=== PATIENT | female | born 1975 ===

== ENCOUNTER 2016-08-10 08:31 | Inpatient (IN) | payer OTHER ==
[2016-08-10] MEDS ORDERED: Iohexol 240 (50 ml) PO STA (09:09)
[2016-08-10] MEDS ORDERED: Iohexol 240 (50 ml) ONE (09:15)
[2016-08-10 09:16] LABS: BASO # 0.1 K/uL (0.0-0.2); BASO % 0.7 % (0.0-2.0); EOS # 0.2 K/uL (0.0-0.7); EOS % 1.2 % (0.0-4.0); HEMATOCRIT 37.7 % (34.0-47.0); LYMPH # 1.5 K/uL (1.0-4.3); LYMPH % 8.4 % (20.0-40.0); MEAN CELL VOLUME 83.4 fL (81.0-99.0); MEAN CORPUSCULAR HEMOGLOBIN 27.2 pg (27.0-31.0); MEAN CORPUSCULAR HGB CONC 32.7 g/dL (33.0-37.0); MONO % 5.6 % (0.0-10.0); PLATELET COUNT 344 K/uL (130-400); RED CELL DISTRIBUTION WIDTH 13.2 % (11.5-14.5); WHITE BLOOD COUNT 17.8 K/uL (4.8-10.8)
--- NOTE | 2016-08-10 09:19 | C.PDOC ---
History Of Present Illness 41 y/o female, whose PMHx includes thyroid disorder and ectopic (10 yrs ago), presents to the ED complaining of lower abdominal pain x 1 day. Patient describes the pain as "contraction-like" and states that it is waxing and waning, never quite going away. She states her last bowel movement was yesterday and denies nausea, vomiting, diarrhea, urinary symptoms, vaginal discharge, fever, back pain, or other complaints. Time Seen by Provider: 08/10/16 08:54 Chief Complaint (Nursing): Abdominal Pain History Per: Patient History/Exam Limitations: no limitations Onset/Duration Of Symptoms: Days (1), Waxing/Waning, Persistent Current Symptoms Are (Timing): Still Present Location Of Pain/Discomfort: RLQ, LLQ, Suprapubic Radiation Of Pain To:: None Quality Of Discomfort: Other ("contraction-like") Last Bowel Movement: Yesterday Recent travel outside of the [place]: No Past Medical History Reviewed: Historical Data, Nursing Documentation, Vital Signs Vital Signs: Last Vital Signs Temp 97.7 F 08/15/16 07:56 Pulse 71 08/15/16 08:53 Resp 20 08/15/16 07:56 BP 151/89 H 08/15/16 07:56 Pulse Ox 97 08/15/16 07:56 - Medical History PMH: Hypothyroidism Other Surgeries: abdominal surgery s/p ectopical preg Family History: States: Unknown Family Hx - Social History Hx Tobacco Use: No Hx Alcohol Use: No Hx Substance Use: No - Immunization History Hx Tetanus Toxoid Vaccination: No Hx Influenza Vaccination: No Hx Pneumococcal Vaccination: No Review Of Systems Except As Marked, All Systems Reviewed And Found Negative. Constitutional: Negative for: Fever Gastrointestinal: Positive for: Abdominal Pain (lower). Negative for: Nausea, Vomiting, Diarrhea Genitourinary: Negative for: Dysuria, Hematuria, Vaginal Discharge Musculoskeletal: Negative for: Back Pain Physical Exam - Physical Exam Appears: Non-toxic, No Acute Distress, Other (uncomfortable) Skin: Normal Color, Warm, Dry Head: Atraumatic, Normacephalic Oral Mucosa: Moist Neck: Normal ROM Chest: Symmetrical Cardiovascular: Rhythm Regular, Other (tachycardic) Respiratory: Normal Breath Sounds, No Rales, No Rhonchi, No Wheezing Gastrointestinal/Abdominal: Bowel Sounds (normal), Soft, Tenderness (RLQ, LLQ, and suprapubic), Guarding Back: Normal Inspection, No CVA Tenderness Extremity: Normal ROM, No Tenderness, No Swelling Pulses: Left Femoral: Normal (+2), Right Femoral: Normal (+2) Neurological/Psych: Oriented x3, Normal Speech, Normal Cognition ED Course And Treatment - Laboratory Results Result Diagrams: 08/15/16 07:15 08/15/16 07:15 O2 Sat by Pulse Oximetry: 98 (ra) Pulse Ox Interpretation: Normal - CT Scan/US CT Abd/Pelvis Other Rad Studies (CT/US): Read By Radiologist (Jorge Odonnell MD), Radiology Report Reviewed CT/US Interpretation: FINDINGS: LOWER THORAX: Mild dependent atelectasis in both lower lobes. LIVER: Unremarkable. No gross lesion or ductal dilatation. GALLBLADDER AND BILE DUCTS: Unremarkable. PANCREAS: Unremarkable. No gross lesion or ductal dilatation. SPLEEN: Unremarkable. ADRENALS: Unremarkable. No mass. KIDNEYS AND URETERS: Unremarkable. No hydronephrosis. No solid mass. VASCULATURE: Unremarkable. No aortic aneurysm. BOWEL: Unremarkable. No obstruction. No gross mural thickening. APPENDIX: Normal appendix. PERITONEUM : Trace fluid in cul-de-sac. LYMPH NODES: Shotty subcentimeter retroperitoneal nodes. Subcentimeter nodes are seen medial to the ascending colon. There are numerous subcentimeter lymph nodes within the small bowel mesenteric, consistent with mesenteric adenitis. There is no pelvic lymphadenopathy. BLADDER: Unremarkable. REPRODUCTIVE: Unremarkable uterus. Left ovarian cyst, 3.1 x 2.4 cm. BONES: No acute fracture. OTHER FINDINGS: None. IMPRESSION: Findings consistent with mesenteric adenitis. Left ovarian cyst, 3.1 x 2.4 cm. No other significant abnormality. Medical Decision Making Medical Decision Making: Plan: * Labs * UA, U-Preg * CT Abd/Pelvis * Morphine IVP, Tylenol PO, Zofran IVP, Rocephin IVPB, IV Fluids * * * * * 238 * discussed with Dr Fernandez, will admit to his service Disposition Discussed With : Carlos Pink Doctor Will See Patient In The: Hospital - Disposition Disposition: HOSPITALIZED Disposition Time: 14:41 Condition: GOOD - Clinical Impression Clinical Impression: Mesenteric adenitis, UTI (urinary tract infection), Abdominal pain - PA / ASSISTIVE TECHNOLOGY SPECIALIST / Resident Statement MD/DO has reviewed & agrees with the documentation as recorded. - Scribe Statement The provider has reviewed the documentation as recorded by the Scribe (Mary Ann Hall) All medical record entries made by the Scribe were at my direction and personally dictated by me. I have reviewed the chart and agree that the record accurately reflects my personal performance of the history, physical exam, medical decision making, and the department course for this patient. I have also personally directed, reviewed, and agree with the discharge instructions and disposition. Decision To Admit - Pt Status Changed To: Hospital Disposition Of: Inpatient - Admit Certification Admit to Inpatient:: After my assessment, the patient will require hospitalization for at least two midnights. This is because of the severity of symptoms shown, intensity of services needed, and/or the medical risk in this patient being treated as an outpatient. - InPatient: Physician Admission Certification:: for iv antibioitics and pain control - . Bed Request Type: Regular Admitting Physician: Carlos Pink Patient Diagnosis: Mesenteric adenitis, UTI (urinary tract infection), Abdominal pain
[2016-08-10 09:26] LABS: CHLORIDE 100 mmol/L (98-107)
[2016-08-10 09:27] LABS: POTASSIUM 3.9 mmol/L (3.6-5.2); SODIUM 136 mmol/L (132-148)
[2016-08-10] MEDS ORDERED: Sodium Chloride 0.9% 1,000 ML ONE (09:28)
[2016-08-10 09:29] LABS: ALB/GLOB RATIO 1.3 (1.0-2.1); ALKALINE PHOSPHATASE 94 U/L (38-126); AST/SGOT 21 U/L (14-36); BILIRUBIN,TOTAL 1.3 mg/dL (0.2-1.3); BLOOD UREA NITROGEN 9 mg/dL (7-17); CARBON DIOXIDE 22 mmol/L (22-30); GFR AFRICAN-AMERICAN > 60; TOTAL PROTEIN 7.9 g/dL (6.3-8.3)
[2016-08-10 09:30] LABS: ALT/SGPT 22 U/L (9-52); CALCIUM 8.6 mg/dl (8.6-10.4); GLUCOSE,RANDOM 101 mg/dL (65-105)
[2016-08-10] MEDS ORDERED: Sodium Chloride 0.9% 1,000 ML IV SCH (09:30)
[2016-08-10] MEDS ORDERED: Sodium Chloride 0.9% 1,000 ML IV ONE (09:30)
[2016-08-10 09:39] LABS: NEUTROPHIL 82 % (50-75); TOTAL CELLS COUNTED 100
[2016-08-10 09:56] LABS: RBC URINE 9 /hpf (0-3); URINE BACTERIA OCC (<OCC); URINE BILIRUBIN NEGATIVE (NEGATIVE); URINE BLOOD 2+ (NEGATIVE); URINE COLOR Yellow (YELLOW); URINE GLUCOSE (UA) NORMAL (Normal); URINE KETONE 1+ mg/dL (NEGATIVE); URINE LEUKOCYTE ESTERASE 2+ Leu/uL (Negative); URINE PROTEIN 1+ mg/dL (NEGATIVE); URINE UROBILINOGEN NORMAL mg/dL (0.2-1.0); WBC URINE 51 /hpf (0-5)
[2016-08-10] MEDS ORDERED: Morphine 4 MG/ML VIAL IV ONE (11:30)
[2016-08-10] MEDS ORDERED: cefTRIAXone IV 1 gm in Dextros 50 ML IVPB ONE (12:07)
[2016-08-10] MEDS ORDERED: Iohexol 350mg/ml 100 ML ONE (12:50)
--- NOTE | 2016-08-10 13:58 | CT ---
PROCEDURE: CT Abdomen and Pelvis with contrast HISTORY: diffuse lower ab pain COMPARISON: None. TECHNIQUE: Contrast dose: 100 mL Omnipaque 350 Radiation dose: Total exam DLP = 832.80 mGy-cm. This CT exam was performed using one or more of the following dose reduction techniques: Automated exposure control, adjustment of the mA and/or kV according to patient size, and/or use of iterative reconstruction technique. FINDINGS: LOWER THORAX: Mild dependent atelectasis in both lower lobes. LIVER: Unremarkable. No gross lesion or ductal dilatation. GALLBLADDER AND BILE DUCTS: Unremarkable. PANCREAS: Unremarkable. No gross lesion or ductal dilatation. SPLEEN: Unremarkable. ADRENALS: Unremarkable. No mass. KIDNEYS AND URETERS: Unremarkable. No hydronephrosis. No solid mass. VASCULATURE: Unremarkable. No aortic aneurysm. BOWEL: Unremarkable. No obstruction. No gross mural thickening. APPENDIX: Normal appendix. PERITONEUM: Trace fluid in cul-de-sac. LYMPH NODES: Shotty subcentimeter retroperitoneal nodes. Subcentimeter nodes are seen medial to the ascending colon. There are numerous subcentimeter lymph nodes within the small bowel mesenteric, consistent with mesenteric adenitis. There is no pelvic lymphadenopathy. BLADDER: Unremarkable. REPRODUCTIVE: Unremarkable uterus. Left ovarian cyst, 3.1 x 2.4 cm. BONES: No acute fracture. OTHER FINDINGS: None. IMPRESSION: Findings consistent with mesenteric adenitis. Left ovarian cyst, 3.1 x 2.4 cm. No other significant abnormality.
--- NOTE | 2016-08-10 15:03 | CP.PCM.HP ---
<Juventino rFias H - Last Filed: 08/10/16 16:35> History of Present Illness - History of Present Illness History of Present Illness: Dr. Russo service H&P CC: "abdomen hurts" Patient is a 41 year female with a past medical history of an ectopic , hypothyroidism, and miscarriage. She is here complaining of diffuse lower abdominal pain, sharp non radiating pain which is worsening from when it started. She says the pain started yesterday. She says the pain is made worse with body movement and also deep inspiration. She reports a loss of appetite, subjective fever and chills. She currently denies changes in vision, hearing, cough, admits to some shortness of breath today while in the bathroom. She complains of chronic constipation with her last bowel movement being yesterday and it was normal. She also reports having irregular, painful and heavy menstrual cycle as well. Her last LMP was Saturday of this week. She also reports some bilateral lower leg pain that she thinks is associated with her last menstrual cycle. She denies nausea, vomiting, diarrhea, joint pain, but admits occasional ankle swelling. Patient has taken no medication for the pain. Patient [place] her medication from her [place] country. PMH: Hypothyroidism, Ectopic PSH: Ectopic FH: Father DM and HTN, Father's mother colon cancer, Mother side of family hypothyroidism SH: Lives with friend, unemployed, social etoh use, denies smoking, illicit drug use Allergies: obnoxious smell Home Medication: 150mcg of synthroid every other day, 100 mcg of symthroid every other day from her country. PMD: none Present on Admission - Present on Admission Any Indicators Present on Admission: No History of DVT/PE: No History of Uncontrolled Diabetes: No Urinary Catheter: No Decubitus Ulcer Present: No Review of Systems - Review of Systems All systems: reviewed and no additional remarkable complaints except - Constitutional Constitutional: Chills, Fever, Headache. absent: Excessive Sweating - EENT Eyes: absent: Change in Vision Ears: Dizziness - Cardiovascular Cardiovascular: Dyspnea. absent: Chest Pain, Edema, Palpitations - Respiratory Respiratory: Dyspnea. absent: Cough, Wheezing - Gastrointestinal Gastrointestinal: Abdominal Pain (worsen with deep inspiration). absent: Constipation, Diarrhea, Nausea, Vomiting Additional comments: loss of appetite. - Genitourinary Genitourinary: absent: Dysuria, Flank Pain, Pyuria, Urinary Urgency - Reproductive: Female Reproductive:Female: Cycle Variable Additional comments: LMP was Monday 08/07 - Menstruation Menstruation: Heavy Menses. absent: Currently Menstual - Musculoskeletal Musculoskeletal: absent: Numbness, Tingling - Integumentary Integumentary: absent: Rash, Jaundice - Neurological Neurological: Dizziness. absent: Numbness, Headaches, Paresthesias, Radicular Pain - Psychiatric Psychiatric: absent: Anxiety - Endocrine Endocrine: absent: Fatigue, Palpitations Past Patient History - Past Social History Smoking Status: Never Smoked - ENDOCRINE/METABOLIC Hx Hypothyroidism: Yes - PSYCHIATRIC Hx Substance Use: No - SURGICAL HISTORY Hx Surgeries: Yes Other/Comment: abdominal surgery s/p ectopical preg. - ANESTHESIA Hx Anesthesia: Yes Hx Anesthesia Reactions: No Meds Allergies/Adverse Reactions: Allergies Allergy/AdvReac Type Severity Reaction Status Date / Time No Known Allergies Allergy Verified 08/10/16 08:39 Physical Exam - Constitutional Appears: Other Additional comments: Patient looked uncomfortable. - Head Exam Head Exam: ATRAUMATIC, NORMAL INSPECTION, NORMOCEPHALIC - Eye Exam Eye Exam: Normal appearance, PERRL, Scleral icterus. absent: Nystagmus Pupil Exam: NORMAL ACCOMODATION Additional comments: conjunctival pallor - Neck Exam Neck exam: Positive for: Normal Inspection. Negative for: Lymphadenopathy - Respiratory Exam Respiratory Exam: Clear to Auscultation Bilateral. absent: Decreased Breath Sounds, Rales, Rhonchi, Wheezes - Cardiovascular Exam Cardiovascular Exam: REGULAR RHYTHM, RRR, +S1, +S2. absent: Gallop, Rubs - GI/Abdominal Exam GI & Abdominal Exam: Guarding, Normal Bowel Sounds, Soft, Tenderness (very tender to palpation but no rebound tenderness). absent: Distended, Organomegaly , Rebound - Extremities Exam Extremities exam: Positive for: normal inspection. Negative for: pedal edema, tenderness - Back Exam Back exam: absent: CVA tenderness (L), CVA tenderness (R), paraspinal tenderness - Neurological Exam Neurological exam: Oriented x3 - Psychiatric Exam Psychiatric exam: Normal Affect, Normal Mood - Skin Skin Exam: Dry, Pallor, Warm Results - Vital Signs Recent Vital Signs: Last Vital Signs Temp 101.3 F H 08/10/16 13:46 Pulse 105 H 08/10/16 13:46 Resp 18 04/07/17 13:46 BP 154/78 H 08/10/16 13:46 Pulse Ox 98 08/10/16 14:43 - Labs Result Diagrams: 08/10/16 09:06 08/10/16 09:06 Assessment & Plan (1) UTI (urinary tract infection) Assessment and Plan: Patient admitted to regular floor Patient has a white count of 17.8 with left shift and bandemia. She is tachycardic and having a low grad fever. So it does fit sepsis, however patient 's f She has suprapubic pain, urine shows nitrates with LE, RBCs and WBCs. No prior history of UTI. Urine test was also negative. Rocephin 1 gram daily and Flagyl 500mg Q8H. Follow up blood and urine culture. Follow up cbc, cmp, mag, phos blood and urine cultures. Monitor patient for sepsis. Status: Acute (2) Mesenteric adenitis Assessment and Plan: CT scan in the ED showed adenitis Consider repeat CT scan or surgical consult if her symptoms persist. Status: Acute (3) Hypothyroidism Assessment and Plan: Continue her home synthroid medication. Follow up TSH and free T4 Status: Chronic (4) Prophylactic measure Assessment and Plan: Lovenox 40mg SC daily, SCDs Pepcid for GI Status: Acute <Neo Russo - Last Filed: 08/10/16 17:28> Results - Vital Signs Recent Vital Signs: Last Vital Signs Temp 98.8 F 08/10/16 15:44 Pulse 105 H 08/10/16 13:46 Resp 18 08/10/16 13:46 BP 154/78 H 08/10/16 13:46 Pulse Ox 98 08/10/16 14:43 - Labs Result Diagrams: 08/10/16 09:06 08/10/16 09:06 Assessment & Plan - Assessment and Plan (Free Text) Assessment: I saw and examined this patient shoulder to shoulder with Dr Frias. the assessment and plan outlined indicate my direct input. She is a 41 years old female with hx of Hyperthyroidism converted to Hypothyroidsm now on Levothyroxin , comes with 2 days of fever, dysuria and pain across the lower abdomen, LLQ and RLQ. The pain is continuous with changing intensity, not radiating to the flanks and no nausea/vomits. In ED temp of 101F; HR 114/min and bandemia with leukocytosis of 17.8 and Positive Urinalysis. #. UTI - Rocephin 1gm IVPB Daily - follow urine culture #. Sepsis with the Leukocytosis, bandemia, Fever, tachycardia - follow Blood culture - Follow urine culture - Treat UTI #. Mesenteric Adenitis. - Rocephin/ Flagyl to cover Anaerobes - Pain management - Zofran for Nausea/vomits #. Stress ulcer Prophylaxis with Pantoprazole #. DVT Prophylaxis - Date & Time Date: 08/10/16 Time: 17:19
[2016-08-10] MEDS ORDERED: Morphine 4 MG/ML VIAL IV PRN (17:23)
[2016-08-10] MEDS ORDERED: Pantoprazole 40 mg EC Tab PO ONE (17:45)
[2016-08-10] MEDS: Pantoprazole 40 mg EC Tab PO SCH (17:53)
[2016-08-10] MEDS: metroNIDAZOLE IV 500 mg/100 ml 100 ML IVPB SCH (21:20)
[2016-08-10 23:22] VITALS: RESP 20
[2016-08-11] MEDS: metroNIDAZOLE IV 500 mg/100 ml 100 ML IVPB SCH ×3 (05:33→21:49)
[2016-08-11] MEDS ORDERED: Levothyroxine 50 MCG TAB PO SCH (06:30)
[2016-08-11] MEDS ORDERED: Levothyroxine 100 MCG TAB PO SCH (06:30)
[2016-08-11 07:35] LABS: BASO # 0.1 K/uL (0.0-0.2); BASO % 0.5 % (0.0-2.0); EOS # 0.3 K/uL (0.0-0.7); EOS % 2.3 % (0.0-4.0); HEMATOCRIT 34.8 % (34.0-47.0); LYMPH % 19.5 % (20.0-40.0); MEAN CELL VOLUME 83.8 fL (81.0-99.0); MEAN CORPUSCULAR HEMOGLOBIN 27.3 pg (27.0-31.0); MEAN CORPUSCULAR HGB CONC 32.6 g/dL (33.0-37.0); MEAN PLATELET VOLUME 8.2 fL (7.2-11.7); MONO # 1.1 K/uL (0.0-0.8); MONO % 6.9 % (0.0-10.0); RED CELL DISTRIBUTION WIDTH 13.5 % (11.5-14.5); WHITE BLOOD COUNT 15.4 K/uL (4.8-10.8)
[2016-08-11 08:16] LABS: THYROID STIMULATING HORMONE 4.96 mIU/L (0.46-4.68)
[2016-08-11 08:24] LABS: CHLORIDE 100 mmol/L (98-107)
[2016-08-11 08:25] LABS: POTASSIUM 3.8 mmol/L (3.6-5.2); SODIUM 140 mmol/L (132-148)
[2016-08-11 08:27] LABS: ALB/GLOB RATIO 1.1 (1.0-2.1); ALKALINE PHOSPHATASE 91 U/L (38-126); AST/SGOT 17 U/L (14-36); BILIRUBIN,TOTAL 0.9 mg/dL (0.2-1.3); CARBON DIOXIDE 24 mmol/L (22-30); GFR AFRICAN-AMERICAN > 60; TOTAL PROTEIN 6.9 g/dL (6.3-8.3)
[2016-08-11 08:28] LABS: ALT/SGPT 20 U/L (9-52); BLOOD UREA NITROGEN 9 mg/dL (7-17); CALCIUM 8.2 mg/dl (8.6-10.4); GLUCOSE,RANDOM 75 mg/dL (65-105); MAGNESIUM 2.3 mg/dL (1.6-2.3); PHOSPHOROUS 2.9 mg/dL (2.5-4.5)
[2016-08-11] MEDS: Sodium Chloride 0.9% 1,000 ML IV SCH ×3 (09:04→20:40)
[2016-08-11] MEDS: Enoxaparin 40 mg Syringe SC SCH (10:00)
[2016-08-11] MEDS: Pantoprazole 40 mg EC Tab PO SCH (10:01)
[2016-08-11] MEDS: POLYETHYLENE GLYCOL 3350 17 GM/Dose PACKET PO SCH (11:30)
[2016-08-11] MEDS: Simethicone 80 mg Chewtab PO SCH (11:30)
--- NOTE | 2016-08-11 12:57 | CP.PCM.PN ---
<AdrianaKenia H - Last Filed: 08/11/16 12:54> Subjective - Date & Time of Evaluation Date of Evaluation: 08/12/15 Time of Evaluation: 08:30 - Subjective Subjective: PGY2 Medicine Note - Dr. Pink's service: Patient seen and examined at bedside this AM. Patient reports severe suprapubic and lower abdominal pain with movement. Patient has not had a bowel movement in 2 days. Patient reports difficulty urinating at home. Patient denies dysuria, urinary frequency and blood in her urine. Patient denies fever, chills , chest pain, SOB, nausea, vomiting today. Objective - Vital Signs/Intake and Output Vital Signs (last 24 hours): Temp Pulse Resp BP Pulse Ox 97.8 F 78 20 126/58 L 99 08/11/16 07:59 08/11/16 08:16 08/11/16 07:59 08/11/16 07:59 08/11/16 07:59 Intake and Output: 08/11/16 08/11/16 06:59 18:59 Intake Total 470 Balance 470 - Medications Medications: Current Medications Acetaminophen (Tylenol 325mg Tab) 650 mg PO Q6 PRN PRN Reason: Pain, severe (8-10) Dicyclomine HCl (Bentyl) 10 mg PO QID [facility] Enoxaparin Sodium (Lovenox) 40 mg SC DAILY [facility] Last Admin: 08/11/16 10:00 Dose: 40 mg Metronidazole (Flagyl) 100 mls @ 100 mls/hr IVPB Q8 [facility] Last Admin: 08/11/16 05:33 Dose: 100 mls/hr Ceftriaxone Sodium 1 gm/ (Sodium Chloride) 100 mls @ 100 mls/hr IVPB Q24H [facility]1983 Sodium Chloride (Sodium Chloride 0.9%) 1,000 mls @ 125 mls/hr IV .Q8H [facility] Last Admin: 08/11/16 09:04 Dose: 125 mls/hr Levothyroxine Sodium (Synthroid) 75 mcg PO DAILY@0630 [facility] Morphine Sulfate (Morphine) 4 mg IV Q6 PRN PRN Reason: Pain, severe (8-10) Morphine Sulfate (Morphine) 2 mg IVP Q6 PRN PRN Reason: Pain, moderate (4-7) Last Admin: 08/11/16 05:34 Dose: 2 mg Ondansetron HCl (Zofran Inj) 4 mg IVP Q4H PRN PRN Reason: Nausea/Vomiting Pantoprazole Sodium (Protonix Ec Tab) 40 mg PO DAILY [facility] Last Admin: 08/11/16 10:01 Dose: 40 mg Pneumococcal Polyvalent Vaccine (Pneumovax 23 Vaccine) 0.5 ml IM .ONCE ONE Stop: 08/12/16 10:01 Polyethylene Glycol (Miralax) 17 gm PO DAILY [facility] Simethicone (Mylicon Chew Tab) 80 mg PO DAILY RUFUS - Labs Labs: 08/11/16 07:18 08/11/16 07:18 - Constitutional Appears: Non-toxic, No Acute Distress - Head Exam Head Exam: NORMAL INSPECTION - Eye Exam Eye Exam: EOMI - ENT Exam ENT Exam: Mucous Membranes Moist - Respiratory Exam Respiratory Exam: Clear to Ausculation Bilateral, NORMAL BREATHING PATTERN. absent: Rales, Rhonchi, Wheezes - Cardiovascular Exam Cardiovascular Exam: REGULAR RHYTHM, +S1, +S2. absent: Gallop, Rubs, Murmur - GI/Abdominal Exam GI & Abdominal Exam: Distended (lower abdomen distended), Tenderness (severe pain with light palpation), Hyperactive Bowel Sounds - Extremities Exam Extremities Exam: absent: Pedal Edema - Neurological Exam Neurological Exam: Alert, Oriented x3 - Psychiatric Exam Psychiatric exam: Normal Affect, Normal Mood - Skin Skin Exam: Normal Color, Warm Assessment and Plan - Assessment and Plan (Free Text) Assessment: (1) UTI (urinary tract infection) Assessment and Plan: UA 1+ protein, 1+ ketones, 2+ blood, positive nitrate, 2+ LE, 51 WBC, 9 RBC, 11 squamous epithelial cells, occasional bacteria urine culture: positive for gram negative rods, F/U sensitivity WBC decreased to 15.4 from 17.8. No bandemia today. + left shift F/U blood culture F/U Lactic Acid Rocephin 1gm IVPB daily NS @125cc/hr (2) Mesenteric adenitis Seen and Abd/Pelvis CT scan Likely viral Surgical consult - Dr. Chairez - f/u recommendations distended abdomen Miralax 17gm PO daily Bentyl PO QID Simethicone 80mg PO daily Status: Acute (3) Hypothyroidism Assessment and Plan: TSH 4.96. Increased levothyroxine to 75mcg PO daily from 50mcg PO daily Patient will need to get TSH checked in 6 weeks outpatient Status: Chronic (4) Prophylactic measure Assessment and Plan: Lovenox 40mg SC daily, SCDs Protonix 40mg PO daily Status: Acute <Carlos Pink - Last Filed: 09/18/16 15:33> Objective - Vital Signs/Intake and Output Vital Signs (last 24 hours): Temp Pulse Resp BP Pulse Ox 97.7 F 71 20 151/89 H 98 08/15/16 07:56 08/15/16 08:53 08/15/16 07:56 08/15/16 07:56 08/17/16 03:20 - Labs Labs: 08/15/16 07:15 08/15/16 07:15 Attending/Attestation - Attestation I have personally seen and examined this patient.: Yes I have fully participated in the care of the patient.: Yes I have reviewed all pertinent clinical information, including history, physical exam and plan: Yes Notes (Text): Patient seen and examined with the resident. Agree with the resident's evaluation, assessment and plan. (1) UTI (urinary tract infection) Assessment and Plan: UA 1+ protein, 1+ ketones, 2+ blood, positive nitrate, 2+ LE, 51 WBC, 9 RBC, 11 squamous epithelial cells, occasional bacteria urine culture: positive for gram negative rods, F/U sensitivity WBC decreased to 15.4 from 17.8. No bandemia today. + left shift F/U blood culture F/U Lactic Acid Rocephin 1gm IVPB daily NS @125cc/hr (2) Mesenteric adenitis Seen and Abd/Pelvis CT scan Likely viral Surgical consult - Dr. Chairez - f/u recommendations distended abdomen Miralax 17gm PO daily Bentyl PO QID Simethicone 80mg PO daily Status: Acute
--- NOTE | 2016-08-11 14:33 | CP.PCM.CON ---
History of Present Illness - History of Present Illness History of Present Illness: General Surgery Dr. Chairez HPI: 41 y/o F w/ PMHx of hypothyroidism who pesented to the ED on 08/10/16 w/ CC of abd pain that began . Pain is described as sharp, non-radiating pain. Pain has progressively worsened which prompted pt to come in for evaluation. Pain is localized lower abd w/ RLQ>LLQ. Pain is made worse w/ mvt and deep breathing. Pt also reports anorexia, subjective fever, and chills. Pt denies N/V, Diarrhea but admits to some recent constipation. PMHx: hypothyroid, ectopic , miscarriage Meds reveiwed in chart NKDA PSHx: for ectopic SHx: denies tobacco or drug use; social EtOH = 1-2drinks ~ FHx: Father - colon Ca, Grandmother HTN, DM Review of Systems - Review of Systems All systems: reviewed and no additional remarkable complaints except (that which stated in HPI) Past Patient History - Past Medical History & Family History Past Medical History?: Yes - Past Social History Smoking Status: Never Smoked - ENDOCRINE/METABOLIC Hx Hypothyroidism: Yes - MUSCULOSKELETAL/RHEUMATOLOGICAL Hx Falls: No - PSYCHIATRIC Hx Substance Use: No - SURGICAL HISTORY Hx Surgeries: Yes Other/Comment: abdominal surgery s/p ectopical preg. - ANESTHESIA Hx Anesthesia: Yes Hx Anesthesia Reactions: No Hx Malignant Hyperthermia: No Has any member of the family had a problem w/ anesthesia?: No Meds Allergies/Adverse Reactions: Allergies Allergy/AdvReac Type Severity Reaction Status Date / Time No Known Allergies Allergy Verified 08/10/16 08:39 - Medications Medications: Current Medications Acetaminophen (Tylenol 325mg Tab) 650 mg PO Q6 PRN PRN Reason: Pain, severe (8-10) Dicyclomine HCl (Bentyl) 10 mg PO QID [facility] Enoxaparin Sodium (Lovenox) 40 mg SC DAILY [facility] Last Admin: 08/11/16 10:00 Dose: 40 mg Metronidazole (Flagyl) 100 mls @ 100 mls/hr IVPB Q8 [facility] Last Admin: 08/11/16 05:33 Dose: 100 mls/hr Ceftriaxone Sodium 1 gm/ (Sodium Chloride) 100 mls @ 100 mls/hr IVPB Q24H [facility] Sodium Chloride (Sodium Chloride 0.9%) 1,000 mls @ 125 mls/hr IV .Q8H [facility] Last Admin: 08/11/16 09:04 Dose: 125 mls/hr Levothyroxine Sodium (Synthroid) 75 mcg PO DAILY@0630 [facility] Morphine Sulfate (Morphine) 4 mg IV Q6 PRN PRN Reason: Pain, severe (8-10) Morphine Sulfate (Morphine) 2 mg IVP Q6 PRN PRN Reason: Pain, moderate (4-7) Last Admin: 08/11/16 05:34 Dose: 2 mg Ondansetron HCl (Zofran Inj) 4 mg IVP Q4H PRN PRN Reason: Nausea/Vomiting Pantoprazole Sodium (Protonix Ec Tab) 40 mg PO DAILY [facility] Last Admin: 08/11/16 10:01 Dose: 40 mg Pneumococcal Polyvalent Vaccine (Pneumovax 23 Vaccine) 0.5 ml IM .ONCE ONE Stop: 08/12/16 10:01 Polyethylene Glycol (Miralax) 17 gm PO DAILY [facility] Simethicone (Mylicon Chew Tab) 80 mg PO DAILY [facility] Physical Exam - Constitutional Appears: Non-toxic, No Acute Distress - Head Exam Head Exam: NORMAL INSPECTION - Eye Exam Eye Exam: Normal appearance - ENT Exam ENT Exam: Mucous Membranes Moist - Respiratory Exam Respiratory Exam: NORMAL BREATHING PATTERN. absent: Accessory Muscle Use, Respiratory Distress - Cardiovascular Exam Cardiovascular Exam: absent: Bradycardia, Tachycardia - GI/Abdominal Exam GI & Abdominal Exam: Guarding (voluntary), Soft, Tenderness (TTP RLQ). absent: Distended, Firm, Rebound, Rigid Additional comments: (-) Rosving, Psoas sign (-) McBurney's point TTP (+) obturator sign - Extremities Exam Extremities exam: Positive for: normal inspection. Negative for: pedal edema - Neurological Exam Neurological exam: Alert, Oriented x3 - Psychiatric Exam Psychiatric exam: Normal Affect, Normal Mood - Skin Skin Exam: Dry, Intact, Normal Color, Warm Results - Vital Signs Recent Vital Signs: Last Vital Signs Temp 97.8 F 08/11/16 07:59 Pulse 78 08/11/16 08:16 Resp 20 08/11/16 07:59 BP 126/58 L 08/11/16 07:59 Pulse Ox 99 08/11/16 07:59 - Labs Result Diagrams: 08/11/16 07:18 08/11/16 07:18 Labs: Laboratory Results - last 24 hr 08/11/16 07:18 WBC 15.4 H RBC 4.16 Hgb 11.3 Hct 34.8 MCV 83.8 MCH 27.3 MCHC 32.6 L RDW 13.5 Plt Count 336 MPV 8.2 Neut % (Auto) 70.8 Lymph % (Auto) 19.5 L Foster % (Auto) 6.9 Eos % (Auto) 2.3 Baso % (Auto) 0.5 Neut # 10.9 H Lymph # 3.0 Foster # 1.1 H Eos # 0.3 Baso # 0.1 Sodium 140 Potassium 3.8 Chloride 100 Carbon Dioxide 24 Anion Gap 19 BUN 9 Creatinine 0.6 L Est GFR ( Amer) > 60 Est GFR (Non-Af Amer) > 60 Random Glucose 75 Calcium 8.2 L Phosphorus 2.9 Magnesium 2.3 Total Bilirubin 0.9 AST 17 ALT 20 Alkaline Phosphatase 91 Total Protein 6.9 Albumin 3.6 Globulin 3.3 Albumin/Globulin Ratio 1.1 Free T4 1.08 TSH 3rd Generation 4.96 H - Imaging and Cardiology CT scan - abdomen Status: Image reviewed by me, Report reviewed by me Assessment & Plan - Assessment and Plan (Free Text) Assessment: 41 y/o F w/ abd pain found to have mesenteric adenitis on CT scan - NPO, IVF - IV Abx - pain management - anti-emetics - cont medical management - no surgical intervention at this time. - consider repeating CT if pain fails to improve or worsens. Pt discussed w/ Dr. Contreras Mccloud DO PGY1
[2016-08-12 06:03] LABS: BASO # 0.1 K/uL (0.0-0.2); BASO % 0.8 % (0.0-2.0); EOS # 0.5 K/uL (0.0-0.7); EOS % 4.5 % (0.0-4.0); HEMATOCRIT 34.4 % (34.0-47.0); LYMPH # 2.7 K/uL (1.0-4.3); LYMPH % 25.8 % (20.0-40.0); MEAN CELL VOLUME 83.4 fL (81.0-99.0); MEAN CORPUSCULAR HEMOGLOBIN 27.6 pg (27.0-31.0); MEAN CORPUSCULAR HGB CONC 33.1 g/dL (33.0-37.0); MEAN PLATELET VOLUME 8.3 fL (7.2-11.7); MONO # 0.8 K/uL (0.0-0.8); MONO % 7.8 % (0.0-10.0); RED CELL DISTRIBUTION WIDTH 13.6 % (11.5-14.5); WHITE BLOOD COUNT 10.5 K/uL (4.8-10.8)
[2016-08-12 06:17] LABS: CHLORIDE 103 mmol/L (98-107)
[2016-08-12 06:18] LABS: POTASSIUM 3.8 mmol/L (3.6-5.2); SODIUM 141 mmol/L (132-148)
[2016-08-12 06:20] LABS: ALB/GLOB RATIO 1.1 (1.0-2.1); ALKALINE PHOSPHATASE 80 U/L (38-126); AST/SGOT 17 U/L (14-36); BILIRUBIN,TOTAL 0.5 mg/dL (0.2-1.3); BLOOD UREA NITROGEN 11 mg/dL (7-17); CARBON DIOXIDE 24 mmol/L (22-30); GFR AFRICAN-AMERICAN > 60; TOTAL PROTEIN 6.5 g/dL (6.3-8.3)
[2016-08-12 06:21] LABS: ALT/SGPT 20 U/L (9-52); CALCIUM 7.8 mg/dl (8.6-10.4); GLUCOSE,RANDOM 84 mg/dL (65-105)
[2016-08-12] MEDS: metroNIDAZOLE IV 500 mg/100 ml 100 ML IVPB SCH ×3 (06:26→21:31)
[2016-08-12] MEDS: Levothyroxine 75 MCG TAB PO SCH (06:29)
[2016-08-12] MEDS: Sodium Chloride 0.9% 1,000 ML IV SCH ×3 (06:32→18:23)
[2016-08-12] MEDS ORDERED: Magnesium Hydroxide Susp 30 ml UD PO ONE (09:15)
--- NOTE | 2016-08-12 09:44 | CP.PCM.PN ---
Subjective - Date & Time of Evaluation Date of Evaluation: 08/12/16 Time of Evaluation: 06:45 - Subjective Subjective: General SUrgery Dr. Chairez Pt S&E @bedside. NAEO. hendricks sitting up on side of bed. c/o abd pain though improved from yesterday. denies N/V, F/C. Objective - Vital Signs/Intake and Output Vital Signs (last 24 hours): Temp Pulse Resp BP Pulse Ox 97.8 F 72 20 144/87 97 08/12/16 08:31 08/12/16 08:31 08/12/16 08:31 08/12/16 08:31 08/12/16 08:31 Intake and Output: 08/12/16 08/12/16 06:59 18:59 Intake Total 2150 Balance 2150 - Medications Medications: Current Medications Acetaminophen (Tylenol 325mg Tab) 650 mg PO Q6 PRN PRN Reason: Pain, severe (8-10) Dicyclomine HCl (Bentyl) 10 mg PO QID [facility] Last Admin: 08/11/16 21:49 Dose: 10 mg Enoxaparin Sodium (Lovenox) 40 mg SC DAILY [facility] Last Admin: 08/11/16 10:00 Dose: 40 mg Metronidazole (Flagyl) 100 mls @ 100 mls/hr IVPB Q8 [facility] Last Admin: 08/12/16 06:26 Dose: 100 mls/hr Ceftriaxone Sodium 1 gm/ (Sodium Chloride) 100 mls @ 100 mls/hr IVPB Q24H [facility] Last Admin: 08/11/16 12:00 Dose: 100 mls/hr Sodium Chloride (Sodium Chloride 0.9%) 1,000 mls @ 125 mls/hr IV .Q8H [facility] Last Admin: 08/12/16 06:32 Dose: 125 mls/hr Levothyroxine Sodium (Synthroid) 75 mcg PO DAILY@0630 [facility] Last Admin: 08/12/16 06:29 Dose: 75 mcg Morphine Sulfate (Morphine) 4 mg IV Q6 PRN PRN Reason: Pain, severe (8-10) Morphine Sulfate (Morphine) 2 mg IVP Q6 PRN PRN Reason: Pain, moderate (4-7) Last Admin: 08/11/16 05:34 Dose: 2 mg Ondansetron HCl (Zofran Inj) 4 mg IVP Q4H PRN PRN Reason: Nausea/Vomiting Pantoprazole Sodium (Protonix Ec Tab) 40 mg PO DAILY [facility] Last Admin: 08/11/16 10:01 Dose: 40 mg Pneumococcal Polyvalent Vaccine (Pneumovax 23 Vaccine) 0.5 ml IM .ONCE ONE Stop: 08/12/16 10:01 Polyethylene Glycol (Miralax) 17 gm PO DAILY [facility] Last Admin: 08/11/16 11:30 Dose: 17 gm Simethicone (Mylicon Chew Tab) 80 mg PO DAILY [facility] Last Admin: 08/11/16 11:30 Dose: 80 mg - Labs Labs: 08/12/16 05:57 08/12/16 05:57 - Constitutional Appears: Non-toxic, No Acute Distress - Head Exam Head Exam: NORMAL INSPECTION - Eye Exam Eye Exam: Normal appearance - ENT Exam ENT Exam: Mucous Membranes Moist - Respiratory Exam Respiratory Exam: NORMAL BREATHING PATTERN. absent: Accessory Muscle Use, Respiratory Distress - GI/Abdominal Exam GI & Abdominal Exam: Guarding (voluntary), Soft, Tenderness (TTP RLQ/suprapubic) . absent: Distended, Rigid, Rebound - Neurological Exam Neurological Exam: Alert, Awake, Oriented x3 - Psychiatric Exam Psychiatric exam: Normal Affect, Normal Mood - Skin Skin Exam: Dry, Intact, Normal Color, Warm Assessment and Plan - Assessment and Plan (Free Text) Assessment: 41 y/o F w/ abd pain 2/2 mesenteric adenitis - cont pain mangement - cont Abx - NPO, IVF - serial abd exams - no surgical intevention at this time. Pt discussed w/ Dr. Contreras Mccloud DO PGY1
[2016-08-12] MEDS ORDERED: Pneumococcal 23-Valent Vaccine IM ONE (10:00)
[2016-08-12] MEDS: Enoxaparin 40 mg Syringe SC SCH (10:16)
[2016-08-12] MEDS: Pantoprazole 40 mg EC Tab PO SCH (10:16)
[2016-08-12] MEDS: POLYETHYLENE GLYCOL 3350 17 GM/Dose PACKET PO SCH (10:16)
[2016-08-12] MEDS: Simethicone 80 mg Chewtab PO SCH (10:19)
--- NOTE | 2016-08-12 10:52 | CP.PCM.PN ---
<Kenia Wright H - Last Filed: 08/12/16 10:49> Subjective - Date & Time of Evaluation Date of Evaluation: 08/12/16 Time of Evaluation: 07:55 - Subjective Subjective: PGY2 Medicine Note - Dr. Pink's service: Patient seen and examined at bedside this AM. Patient reports improving suprapubic and lower abdominal pain with movement. Patient has not had a bowel movement in 3 days. Patient denies dysuria, urinary frequency and blood in her urine. Patient denies fever, chills, chest pain, SOB, nausea, vomiting today. Objective - Vital Signs/Intake and Output Vital Signs (last 24 hours): Temp Pulse Resp BP Pulse Ox 97.8 F 72 20 144/87 97 08/12/16 08:31 08/12/16 08:31 08/12/16 08:31 08/12/16 08:31 08/12/16 08:31 Intake and Output: 08/12/16 08/12/16 06:59 18:59 Intake Total 2150 Balance 2150 - Medications Medications: Current Medications Acetaminophen (Tylenol 325mg Tab) 650 mg PO Q6 PRN PRN Reason: Pain, severe (8-10) Dicyclomine HCl (Bentyl) 5 mg PO BID [facility] Enoxaparin Sodium (Lovenox) 40 mg SC DAILY [facility] Last Admin: 08/12/16 10:16 Dose: 40 mg Metronidazole (Flagyl) 100 mls @ 100 mls/hr IVPB Q8 [facility] Last Admin: 08/12/16 06:26 Dose: 100 mls/hr Ceftriaxone Sodium 1 gm/ (Sodium Chloride) 100 mls @ 100 mls/hr IVPB Q24H [facility] Last Admin: 08/11/16 12:00 Dose: 100 mls/hr Sodium Chloride (Sodium Chloride 0.9%) 1,000 mls @ 125 mls/hr IV .Q8H [facility] Last Admin: 08/12/16 10:17 Dose: Not Given Levothyroxine Sodium (Synthroid) 75 mcg PO DAILY@0630 [facility] Last Admin: 08/12/16 06:29 Dose: 75 mcg Morphine Sulfate (Morphine) 4 mg IV Q6 PRN PRN Reason: Pain, severe (8-10) Morphine Sulfate (Morphine) 2 mg IVP Q6 PRN PRN Reason: Pain, moderate (4-7) Last Admin: 08/11/16 05:34 Dose: 2 mg Ondansetron HCl (Zofran Inj) 4 mg IVP Q4H PRN PRN Reason: Nausea/Vomiting Pantoprazole Sodium (Protonix Ec Tab) 40 mg PO DAILY [facility] Last Admin: 08/12/16 10:16 Dose: 40 mg Polyethylene Glycol (Miralax) 17 gm PO DAILY [facility] Last Admin: 08/12/16 10:16 Dose: 17 gm Simethicone (Mylicon Chew Tab) 80 mg PO DAILY [facility] Last Admin: 08/12/16 10:19 Dose: 80 mg - Labs Labs: 08/12/16 05:57 08/12/16 05:57 - Constitutional Appears: Non-toxic, No Acute Distress - Head Exam Head Exam: NORMAL INSPECTION - Eye Exam Eye Exam: EOMI - Respiratory Exam Respiratory Exam: Clear to Ausculation Bilateral, NORMAL BREATHING PATTERN. absent: Rales, Rhonchi, Wheezes - Cardiovascular Exam Cardiovascular Exam: REGULAR RHYTHM, +S1, +S2. absent: Gallop, Rubs, Murmur - GI/Abdominal Exam GI & Abdominal Exam: Distended (lower abdomen), Tenderness (decreased than yesterday), Normal Bowel Sounds. absent: Guarding - Neurological Exam Neurological Exam: Alert, Oriented x3 - Psychiatric Exam Psychiatric exam: Normal Affect, Normal Mood - Skin Skin Exam: Normal Color, Warm Assessment and Plan - Assessment and Plan (Free Text) Assessment: (1) UTI (urinary tract infection) Assessment and Plan: UA 1+ protein, 1+ ketones, 2+ blood, positive nitrate, 2+ LE, 51 WBC, 9 RBC, 11 squamous epithelial cells, occasional bacteria urine culture: E.Coli sensitive to rocephin, cipro and more; only resistant to ampicillin Blood culture negative x 24 hours Lactic Acid 0.7 WBC decreased to 10.5 from 15.4. No bandemia today. no left shift Rocephin 1gm IVPB daily NS @125cc/hr (2) Mesenteric adenitis Seen and Abd/Pelvis CT scan Likely viral, but can be yersinia enterolyticus Surgical consult - Dr. Chairez - help appreciated distended abdomen Flagyl 500mg IVPB Q8H Miralax 17gm PO daily Milk of Mag 30ml once Bentyl 5mg PO BID Simethicone 80mg PO daily Status: Acute (3) Hypothyroidism Assessment and Plan: TSH 4.96. Increased levothyroxine to 75mcg PO daily from 50mcg PO daily Patient will need to get TSH checked in 6 weeks outpatient Status: Chronic (4) Prophylactic measure Assessment and Plan: Lovenox 40mg SC daily, SCDs Protonix 40mg PO daily Status: Acute <Carlos Pink - Last Filed: 09/18/16 16:04> Objective - Vital Signs/Intake and Output Vital Signs (last 24 hours): Temp Pulse Resp BP Pulse Ox 97.7 F 71 20 151/89 H 98 08/15/16 07:56 08/15/16 08:53 08/15/16 07:56 08/15/16 07:56 08/17/16 03:20 - Labs Labs: 08/15/16 07:15 08/15/16 07:15 Attending/Attestation - Attestation I have personally seen and examined this patient.: Yes I have fully participated in the care of the patient.: Yes I have reviewed all pertinent clinical information, including history, physical exam and plan: Yes Notes (Text): Patient seen and examined with the resident. Agree with the resident's evaluation, assessment and plan. (1) UTI (urinary tract infection) Assessment and Plan: UA 1+ protein, 1+ ketones, 2+ blood, positive nitrate, 2+ LE, 51 WBC, 9 RBC, 11 squamous epithelial cells, occasional bacteria urine culture: E.Coli sensitive to rocephin, cipro and more; only resistant to ampicillin Blood culture negative x 24 hours Lactic Acid 0.7 WBC decreased to 10.5 from 15.4. No bandemia today. no left shift Rocephin 1gm IVPB daily NS @125cc/hr (2) Mesenteric adenitis Seen and Abd/Pelvis CT scan Likely viral, but can be yersinia enterolyticus Surgical consult - Dr. Chairez - help appreciated distended abdomen Flagyl 500mg IVPB Q8H Miralax 17gm PO daily Milk of Mag 30ml once Bentyl 5mg PO BID Simethicone 80mg PO daily Status: Acute
[2016-08-13] MEDS: Sodium Chloride 0.9% 1,000 ML IV SCH ×4 (03:00→17:19)
[2016-08-13] MEDS: Levothyroxine 75 MCG TAB PO SCH (05:55)
[2016-08-13] MEDS: metroNIDAZOLE IV 500 mg/100 ml 100 ML IVPB SCH ×3 (05:57→21:38)
[2016-08-13 06:17] LABS: BASO # 0.1 K/uL (0.0-0.2); BASO % 0.9 % (0.0-2.0); EOS # 0.4 K/uL (0.0-0.7); EOS % 3.8 % (0.0-4.0); HEMATOCRIT 34.8 % (34.0-47.0); LYMPH # 2.7 K/uL (1.0-4.3); LYMPH % 27.6 % (20.0-40.0); MEAN CELL VOLUME 83.1 fL (81.0-99.0); MEAN CORPUSCULAR HEMOGLOBIN 27.9 pg (27.0-31.0); MEAN CORPUSCULAR HGB CONC 33.6 g/dL (33.0-37.0); MEAN PLATELET VOLUME 8.3 fL (7.2-11.7); MONO # 0.7 K/uL (0.0-0.8); MONO % 7.1 % (0.0-10.0); RED CELL DISTRIBUTION WIDTH 13.2 % (11.5-14.5); WHITE BLOOD COUNT 9.7 K/uL (4.8-10.8)
[2016-08-13 06:35] LABS: CHLORIDE 102 mmol/L (98-107); SODIUM 140 mmol/L (132-148)
[2016-08-13 06:36] LABS: POTASSIUM 3.8 mmol/L (3.6-5.2)
[2016-08-13 06:38] LABS: ALKALINE PHOSPHATASE 79 U/L (38-126); ALT/SGPT 20 U/L (9-52); AST/SGOT 15 U/L (14-36); BILIRUBIN,TOTAL 0.5 mg/dL (0.2-1.3); BLOOD UREA NITROGEN 5 mg/dL (7-17); CALCIUM 7.9 mg/dl (8.6-10.4); CARBON DIOXIDE 24 mmol/L (22-30); GFR AFRICAN-AMERICAN > 60; GLUCOSE,RANDOM 80 mg/dL (65-105); TOTAL PROTEIN 6.8 g/dL (6.3-8.3)
[2016-08-13] MEDS: Enoxaparin 40 mg Syringe SC SCH (10:24)
[2016-08-13] MEDS: Pantoprazole 40 mg EC Tab PO SCH (10:24)
[2016-08-13] MEDS: POLYETHYLENE GLYCOL 3350 17 GM/Dose PACKET PO SCH (10:25)
[2016-08-13] MEDS: Simethicone 80 mg Chewtab PO SCH (10:29)
--- NOTE | 2016-08-13 14:41 | CP.PCM.PN ---
Subjective - Date & Time of Evaluation Date of Evaluation: 08/13/16 Time of Evaluation: 07:00 - Subjective Subjective: Gen Surg: Dr. Chairez Patient seen and examined. Reports pain has improved, however oil process stillman in LLQ. Patient reports bouts of diarrhea. Denies fever/chills. NAEO. Objective - Vital Signs/Intake and Output Vital Signs (last 24 hours): Temp Pulse Resp BP Pulse Ox 98.2 F 79 20 162/93 H 97 08/13/16 08:00 08/13/16 08:00 08/13/16 08:00 08/13/16 08:00 08/13/16 08:00 Intake and Output: 08/13/16 08/13/16 06:59 18:59 Intake Total 1250 Balance 1250 - Medications Medications: Current Medications Acetaminophen (Tylenol 325mg Tab) 650 mg PO Q6 PRN PRN Reason: Pain, severe (8-10) Dicyclomine HCl (Bentyl) 10 mg PO BID [facility] Last Admin: 08/13/16 10:25 Dose: 10 mg Enoxaparin Sodium (Lovenox) 40 mg SC DAILY [facility] Last Admin: 08/13/16 10:24 Dose: Not Given Metronidazole (Flagyl) 100 mls @ 100 mls/hr IVPB Q8 [facility] Last Admin: 08/13/16 13:55 Dose: 100 mls/hr Ceftriaxone Sodium 1 gm/ (Sodium Chloride) 100 mls @ 100 mls/hr IVPB Q24H [facility] Last Admin: 08/13/16 11:27 Dose: 100 mls/hr Sodium Chloride (Sodium Chloride 0.9%) 1,000 mls @ 125 mls/hr IV .Q8H [facility] Last Admin: 08/13/16 14:20 Dose: 125 mls/hr Levothyroxine Sodium (Synthroid) 75 mcg PO DAILY@0630 [facility] Last Admin: 08/13/16 05:55 Dose: 75 mcg Morphine Sulfate (Morphine) 4 mg IV Q6 PRN PRN Reason: Pain, severe (8-10) Last Admin: 08/12/16 12:10 Dose: 4 mg Morphine Sulfate (Morphine) 2 mg IVP Q6 PRN PRN Reason: Pain, moderate (4-7) Last Admin: 08/11/16 05:34 Dose: 2 mg Ondansetron HCl (Zofran Inj) 4 mg IVP Q4H PRN PRN Reason: Nausea/Vomiting Last Admin: 08/13/16 01:06 Dose: 4 mg Pantoprazole Sodium (Protonix Ec Tab) 40 mg PO DAILY [facility] Last Admin: 08/13/16 10:24 Dose: 40 mg Polyethylene Glycol (Miralax) 17 gm PO DAILY [facility] Last Admin: 08/13/16 10:25 Dose: Not Given Simethicone (Mylicon Chew Tab) 80 mg PO DAILY [facility] Last Admin: 08/13/16 10:29 Dose: 80 mg - Labs Labs: 08/13/16 06:04 08/13/16 06:04 - Constitutional Appears: No Acute Distress - Head Exam Head Exam: NORMOCEPHALIC - Eye Exam Eye Exam: Normal appearance - ENT Exam ENT Exam: Mucous Membranes Moist - Respiratory Exam Respiratory Exam: NORMAL BREATHING PATTERN - Cardiovascular Exam Cardiovascular Exam: +S1, +S2 - GI/Abdominal Exam GI & Abdominal Exam: Soft, Tenderness - Neurological Exam Neurological Exam: Alert, Awake, Oriented x3 - Psychiatric Exam Psychiatric exam: Normal Mood - Skin Skin Exam: Dry, Intact, Warm Assessment and Plan - Assessment and Plan (Free Text) Assessment: 41 y/o F w/ abd pain 2/2 mesenteric adenitis - cont pain mangement -Regular Diet - cont Abx - serial abd exams - no surgical intevention at this time. Panfilo Chairez
--- NOTE | 2016-08-13 15:06 | CP.PCM.PN ---
<DeucerosieMonican - Last Filed: 08/13/16 15:02> Subjective - Date & Time of Evaluation Date of Evaluation: 08/13/16 Time of Evaluation: 07:50 - Subjective Subjective: Pt seen and examined. Pt reports that her abdominal pain has improved. She reports that her appetite has increased. She also reports that she experienced some nasuea last night with one episode of emesis. She describes the emesis as a "white" color. Pt reports that the nausea and vomiting have since resolved. Pt reports that she has had 2 bouts of diarrhea today, after taking laxative. Pt denies fever, chills, chest pain, shortness of breath, and dysuria. Objective - Vital Signs/Intake and Output Vital Signs (last 24 hours): Temp Pulse Resp BP Pulse Ox 98.2 F 79 20 162/93 H 97 08/13/16 08:00 08/13/16 08:00 08/13/16 08:00 08/13/16 08:00 08/13/16 08:00 Intake and Output: 08/13/16 08/13/16 06:59 18:59 Intake Total 1250 Balance 1250 - Medications Medications: Current Medications Acetaminophen (Tylenol 325mg Tab) 650 mg PO Q6 PRN PRN Reason: Pain, severe (8-10) Dicyclomine HCl (Bentyl) 10 mg PO BID [facility] Last Admin: 08/13/16 10:25 Dose: 10 mg Enoxaparin Sodium (Lovenox) 40 mg SC DAILY [facility] Last Admin: 08/13/16 10:24 Dose: Not Given Metronidazole (Flagyl) 100 mls @ 100 mls/hr IVPB Q8 [facility] Last Admin: 08/13/16 13:55 Dose: 100 mls/hr Ceftriaxone Sodium 1 gm/ (Sodium Chloride) 100 mls @ 100 mls/hr IVPB Q24H [facility] Last Admin: 08/13/16 11:27 Dose: 100 mls/hr Sodium Chloride (Sodium Chloride 0.9%) 1,000 mls @ 125 mls/hr IV .Q8H [facility] Last Admin: 08/13/16 14:20 Dose: 125 mls/hr Levothyroxine Sodium (Synthroid) 75 mcg PO DAILY@0630 [facility] Last Admin: 08/13/16 05:55 Dose: 75 mcg Morphine Sulfate (Morphine) 4 mg IV Q6 PRN PRN Reason: Pain, severe (8-10) Last Admin: 08/12/16 12:10 Dose: 4 mg Morphine Sulfate (Morphine) 2 mg IVP Q6 PRN PRN Reason: Pain, moderate (4-7) Last Admin: 08/11/16 05:34 Dose: 2 mg Ondansetron HCl (Zofran Inj) 4 mg IVP Q4H PRN PRN Reason: Nausea/Vomiting Last Admin: 08/13/16 01:06 Dose: 4 mg Pantoprazole Sodium (Protonix Ec Tab) 40 mg PO DAILY [facility] Last Admin: 08/13/16 10:24 Dose: 40 mg Polyethylene Glycol (Miralax) 17 gm PO DAILY [facility] Last Admin: 08/13/16 10:25 Dose: Not Given Simethicone (Mylicon Chew Tab) 80 mg PO DAILY [facility] Last Admin: 08/13/16 10:29 Dose: 80 mg - Labs Labs: 08/13/16 06:04 08/13/16 06:04 - Constitutional Appears: No Acute Distress - Head Exam Head Exam: ATRAUMATIC, NORMOCEPHALIC - Eye Exam Eye Exam: EOMI, PERRL - ENT Exam ENT Exam: Mucous Membranes Moist. absent: Mucous Membranes Dry - Respiratory Exam Respiratory Exam: Clear to Ausculation Bilateral. absent: Rales, Rhonchi, Wheezes - Cardiovascular Exam Cardiovascular Exam: +S1, +S2. absent: Gallop, Rubs - GI/Abdominal Exam GI & Abdominal Exam: Soft, Tenderness, Normal Bowel Sounds. absent: Distended, Guarding, Rigid Additional comments: mid epigastric tenderness - Extremities Exam Extremities Exam: Full ROM. absent: Pedal Edema - Neurological Exam Neurological Exam: Alert, Awake, Oriented x3 - Psychiatric Exam Psychiatric exam: Normal Affect, Normal Mood - Skin Skin Exam: Normal Color, Warm Assessment and Plan - Assessment and Plan (Free Text) Assessment: Urinary Tract Infection: U/A: 1+ protein, 1+ ketones, 2+ blood, positive nitrate, 2+ LE, 51 WBC, 9 RBC, 11 squamous epithelial cells, occasional bacteria Urine culture: positive for E. Coli Pt afebrile, nontachycardic Leukocytosis resolved Rocephin 1 gm IV Q24h Mesenteric Adenitis: Abd/Pelvis CT: lymph nodes present within the small bowel mesentery. consistent with mesenteric adenitis (please see full report) Flagyl IV q8h Morphine 2 mg IV q6h prn for moderate pain Zofran 4 mg IV q4h prn for nausea Symethicone 80 mg po qd for gas NS 125 cc/hr Diet advanced to regular Conservative management as per surgery Diarrhea: Miralax discontinued due to diarrhea Hypothyroidism: TSH - 4.96 Synthroid 75 mcg po qd Prophylactic Measures: GI: Protonix 40 mg po qd DVT: Lovenox 40 mg sc qd, SCDs <Ej Mancia M - Last Filed: 08/13/16 16:56> Objective - Vital Signs/Intake and Output Vital Signs (last 24 hours): Temp Pulse Resp BP Pulse Ox 99.9 F H 71 20 149/78 96 08/13/16 15:00 08/13/16 16:30 08/13/16 15:00 08/13/16 15:00 08/13/16 15:00 Intake and Output: 08/13/16 08/13/16 06:59 18:59 Intake Total 1250 1450 Balance 1250 1450 - Medications Medications: Current Medications Acetaminophen (Tylenol 325mg Tab) 650 mg PO Q6 PRN PRN Reason: Pain, severe (8-10) Enoxaparin Sodium (Lovenox) 40 mg SC DAILY [facility] Last Admin: 08/13/16 10:24 Dose: Not Given Metronidazole (Flagyl) 100 mls @ 100 mls/hr IVPB Q8 [facility] Last Admin: 08/13/16 13:55 Dose: 100 mls/hr Ceftriaxone Sodium 1 gm/ (Sodium Chloride) 100 mls @ 100 mls/hr IVPB Q24H [facility] Last Admin: 08/13/16 11:27 Dose: 100 mls/hr Sodium Chloride (Sodium Chloride 0.9%) 1,000 mls @ 125 mls/hr IV .Q8H [facility] Last Admin: 08/13/16 14:20 Dose: 125 mls/hr Levothyroxine Sodium (Synthroid) 75 mcg PO DAILY@0630 [facility] Last Admin: 08/13/16 05:55 Dose: 75 mcg Morphine Sulfate (Morphine) 2 mg IVP Q6 PRN PRN Reason: Pain, moderate (4-7) Last Admin: 08/11/16 05:34 Dose: 2 mg Ondansetron HCl (Zofran Inj) 4 mg IVP Q4H PRN PRN Reason: Nausea/Vomiting Last Admin: 08/13/16 01:06 Dose: 4 mg Pantoprazole Sodium (Protonix Ec Tab) 40 mg PO DAILY [facility] Last Admin: 08/13/16 10:24 Dose: 40 mg Simethicone (Mylicon Chew Tab) 80 mg PO DAILY [facility] Last Admin: 08/13/16 10:29 Dose: 80 mg - Labs Labs: 08/13/16 06:04 08/13/16 06:04 Attending/Attestation - Attestation I have personally seen and examined this patient.: Yes I have fully participated in the care of the patient.: Yes I have reviewed all pertinent clinical information, including history, physical exam and plan: Yes Notes (Text): 08/13/16 16:54 Patient was seen and examined at bedside with the resident Still complains of abdominal pain Patient started on liquid diet Monitor and advance as tolerated Continue IV antibiotics and surgery is on board No surgical intervention has been suggested I discussed the plan of care with the resident and agree with the above history and physical and assessment/plan by the resident.
[2016-08-14] MEDS: Sodium Chloride 0.9% 1,000 ML IV SCH ×3 (01:12→10:43)
[2016-08-14] MEDS: Levothyroxine 75 MCG TAB PO SCH (05:54)
[2016-08-14] MEDS: metroNIDAZOLE IV 500 mg/100 ml 100 ML IVPB SCH ×3 (05:54→21:36)
[2016-08-14 07:19] LABS: BASO # 0.1 K/uL (0.0-0.2); BASO % 0.8 % (0.0-2.0); EOS # 0.4 K/uL (0.0-0.7); EOS % 4.7 % (0.0-4.0); HEMATOCRIT 36.8 % (34.0-47.0); LYMPH # 3.1 K/uL (1.0-4.3); MEAN CELL VOLUME 82.9 fL (81.0-99.0); MEAN CORPUSCULAR HEMOGLOBIN 27.4 pg (27.0-31.0); MEAN CORPUSCULAR HGB CONC 33.1 g/dL (33.0-37.0); MEAN PLATELET VOLUME 8.3 fL (7.2-11.7); MONO # 0.8 K/uL (0.0-0.8); MONO % 8.5 % (0.0-10.0); RED CELL DISTRIBUTION WIDTH 13.4 % (11.5-14.5); WHITE BLOOD COUNT 9.1 K/uL (4.8-10.8)
[2016-08-14 07:22] LABS: CHLORIDE 102 mmol/L (98-107)
[2016-08-14 07:23] LABS: POTASSIUM 3.9 mmol/L (3.6-5.2); SODIUM 138 mmol/L (132-148)
[2016-08-14 07:25] LABS: ALB/GLOB RATIO 1.1 (1.0-2.1); ALKALINE PHOSPHATASE 73 U/L (38-126); ALT/SGPT 26 U/L (9-52); AST/SGOT 54 U/L (14-36); BILIRUBIN,TOTAL 0.2 mg/dL (0.2-1.3); BLOOD UREA NITROGEN 7 mg/dL (7-17); CARBON DIOXIDE 24 mmol/L (22-30); GFR AFRICAN-AMERICAN > 60; GLUCOSE,RANDOM 81 mg/dL (65-105); PHOSPHOROUS 3.1 mg/dL (2.5-4.5); TOTAL PROTEIN 6.6 g/dL (6.3-8.3)
[2016-08-14 07:26] LABS: CALCIUM 8.3 mg/dl (8.6-10.4); MAGNESIUM 2.2 mg/dL (1.6-2.3)
--- NOTE | 2016-08-14 09:39 | CP.PCM.PN ---
<Royce Corral - Last Filed: 08/14/16 14:07> Subjective - Date & Time of Evaluation Date of Evaluation: 08/14/16 Time of Evaluation: 07:40 - Subjective Subjective: PGY-1 Medicine Progress Note for Dr. Mancia Patient seen and examined at bedside. No acute event overnight. Patient reports that her abdominal pain has improved again today. Patient has nausea occasionally. She is tolerating diet and having BMs. She is concerned about her blood pressure but was reassured that it is only slightly elevated due to IV fluids. Denies fever/chills, chest pain, shortness of breath, vomiting, diarrhea , constipation, and dysuria. Objective - Vital Signs/Intake and Output Vital Signs (last 24 hours): Temp Pulse Resp BP Pulse Ox 98.0 F 77 20 152/84 H 99 08/14/16 08:00 08/14/16 08:00 08/14/16 08:00 08/14/16 08:00 08/14/16 08:00 Intake and Output: 08/14/16 08/14/16 06:59 18:59 Intake Total 2170 Balance 2170 - Medications Medications: Current Medications Acetaminophen (Tylenol 325mg Tab) 650 mg PO Q6 PRN PRN Reason: Pain, severe (8-10) Enoxaparin Sodium (Lovenox) 40 mg SC DAILY [facility] Last Admin: 08/13/16 10:24 Dose: Not Given Metronidazole (Flagyl) 100 mls @ 100 mls/hr IVPB Q8 [facility] Last Admin: 08/14/16 05:54 Dose: 100 mls/hr Ceftriaxone Sodium 1 gm/ (Sodium Chloride) 100 mls @ 100 mls/hr IVPB Q24H [facility] Last Admin: 08/13/16 11:27 Dose: 100 mls/hr Sodium Chloride (Sodium Chloride 0.9%) 1,000 mls @ 125 mls/hr IV .Q8H [facility] Last Admin: 08/14/16 06:04 Dose: 125 mls/hr Levothyroxine Sodium (Synthroid) 75 mcg PO DAILY@0630 [facility] Last Admin: 08/14/16 05:54 Dose: 75 mcg Morphine Sulfate (Morphine) 2 mg IVP Q6 PRN PRN Reason: Pain, moderate (4-7) Last Admin: 08/11/16 05:34 Dose: 2 mg Ondansetron HCl (Zofran Inj) 4 mg IVP Q4H PRN PRN Reason: Nausea/Vomiting Last Admin: 08/13/16 01:06 Dose: 4 mg Pantoprazole Sodium (Protonix Ec Tab) 40 mg PO DAILY [facility] Last Admin: 08/13/16 10:24 Dose: 40 mg Simethicone (Mylicon Chew Tab) 80 mg PO DAILY [facility] Last Admin: 08/13/16 10:29 Dose: 80 mg - Labs Labs: 08/14/16 06:47 08/14/16 06:47 - Constitutional Appears: No Acute Distress - Head Exam Head Exam: ATRAUMATIC, NORMOCEPHALIC - Eye Exam Eye Exam: EOMI, Normal appearance Pupil Exam: PERRL - ENT Exam ENT Exam: Mucous Membranes Moist - Neck Exam Neck Exam: Normal Inspection - Respiratory Exam Respiratory Exam: Clear to Ausculation Bilateral, NORMAL BREATHING PATTERN - Cardiovascular Exam Cardiovascular Exam: REGULAR RHYTHM, +S1, +S2 - GI/Abdominal Exam GI & Abdominal Exam: Soft, Tenderness (bilateral lower abdomen), Normal Bowel Sounds. absent: Distended, Firm, Guarding, Rebound - Extremities Exam Extremities Exam: Normal Capillary Refill - Back Exam Back Exam: absent: CVA tenderness (L), CVA tenderness (R) - Neurological Exam Neurological Exam: Alert, Awake, CN II-XII Intact, Oriented x3 - Psychiatric Exam Psychiatric exam: Normal Affect, Normal Mood - Skin Skin Exam: Dry, Intact, Normal Color, Warm Assessment and Plan - Assessment and Plan (Free Text) Plan: 1. Urinary Tract Infection: U/A: 1+ protein, 1+ ketones, 2+ blood, positive nitrate, 2+ LE, 51 WBC, 9 RBC, 11 squamous epithelial cells, occasional bacteria Urine culture: positive for E. Coli Pt afebrile, nontachycardic Leukocytosis resolved Rocephin 1 gm IV Q24h 2. Mesenteric Adenitis: Abd/Pelvis CT: lymph nodes present within the small bowel mesentery. consistent with mesenteric adenitis (please see full report) Flagyl 500 mg IV q8h Morphine 2 mg IV q6h prn for moderate pain Zofran 4 mg IV q4h prn for nausea Simethicone 80 mg po qd for gas Tylenol as needed for fever Regular diet Surgery has cleared patient for discharge, follow up with GI as outpatient 3. Diarrhea: Miralax discontinued due to diarrhea 4. Hypothyroidism: TSH - 4.96 Synthroid 75 mcg po qd 5. Prophylactic Measures: GI: Protonix 40 mg po qd DVT: Lovenox 40 mg sc qd, SCDs Regular diet <Ej Mancia - Last Filed: 08/15/16 09:07> Objective - Vital Signs/Intake and Output Vital Signs (last 24 hours): Temp Pulse Resp BP Pulse Ox 97.7 F 71 20 151/89 H 97 08/15/16 07:56 08/15/16 08:53 08/15/16 07:56 08/15/16 07:56 08/15/16 07:56 Intake and Output: 08/15/16 08/15/16 06:59 18:59 Intake Total 675 Balance 675 - Medications Medications: Current Medications Acetaminophen (Tylenol 325mg Tab) 650 mg PO Q6 PRN PRN Reason: Pain, severe (8-10) Enoxaparin Sodium (Lovenox) 40 mg SC DAILY [facility] Last Admin: 08/14/16 10:42 Dose: Not Given Metronidazole (Flagyl) 100 mls @ 100 mls/hr IVPB Q8 [facility] Last Admin: 08/15/16 05:30 Dose: 100 mls/hr Ceftriaxone Sodium 1 gm/ (Sodium Chloride) 100 mls @ 100 mls/hr IVPB Q24H [facility] Last Admin: 08/14/16 11:00 Dose: 100 mls/hr Levothyroxine Sodium (Synthroid) 75 mcg PO DAILY@0630 [facility] Last Admin: 08/15/16 05:49 Dose: 75 mcg Ondansetron HCl (Zofran Inj) 4 mg IVP Q4H PRN PRN Reason: Nausea/Vomiting Last Admin: 08/13/16 01:06 Dose: 4 mg Pantoprazole Sodium (Protonix Ec Tab) 40 mg PO DAILY [facility] Last Admin: 08/14/16 10:43 Dose: 40 mg Simethicone (Mylicon Chew Tab) 80 mg PO DAILY [facility] Last Admin: 08/14/16 10:43 Dose: 80 mg - Labs Labs: 08/15/16 07:15 08/15/16 07:15 Attending/Attestation - Attestation I have personally seen and examined this patient.: Yes I have fully participated in the care of the patient.: Yes I have reviewed all pertinent clinical information, including history, physical exam and plan: Yes Notes (Text): 08/15/16 09:07 Patient was seen and examined at bedside Still has abdominal tenderness but it is improving Patient is tolerating diet We will continue IV antibiotics for mesenteric adenitis and for UTI I discussed the plan of care with the resident and agree with the above history and physical and assessment/plan as documented by the resident.
[2016-08-14] MEDS: Enoxaparin 40 mg Syringe SC SCH (10:42)
[2016-08-14] MEDS: Pantoprazole 40 mg EC Tab PO SCH (10:43)
[2016-08-14] MEDS: Simethicone 80 mg Chewtab PO SCH (10:43)
--- NOTE | 2016-08-14 13:42 | CP.PCM.PN ---
Subjective - Date & Time of Evaluation Date of Evaluation: 08/14/16 Time of Evaluation: 07:00 - Subjective Subjective: Patient was seen, chart reviewed and evaluated. Patient states she feels better but still complains of abdominal pain in the lower quadrants. She admits to nausea but denies any vomiting, diarrhea, or fever. She has been tolerating her diet well and had a bowel movement. She denies dysuria. Objective - Vital Signs/Intake and Output Vital Signs (last 24 hours): Temp Pulse Resp BP Pulse Ox 98.0 F 77 20 152/84 H 99 08/14/16 08:00 08/14/16 11:31 08/14/16 08:00 08/14/16 08:00 08/14/16 08:00 Intake and Output: 08/14/16 08/14/16 06:59 18:59 Intake Total 2170 Balance 2170 - Medications Medications: Current Medications Acetaminophen (Tylenol 325mg Tab) 650 mg PO Q6 PRN PRN Reason: Pain, severe (8-10) Enoxaparin Sodium (Lovenox) 40 mg SC DAILY [facility] Last Admin: 08/14/16 10:42 Dose: Not Given Metronidazole (Flagyl) 100 mls @ 100 mls/hr IVPB Q8 [facility] Last Admin: 08/14/16 13:23 Dose: 100 mls/hr Ceftriaxone Sodium 1 gm/ (Sodium Chloride) 100 mls @ 100 mls/hr IVPB Q24H [facility] Last Admin: 08/14/16 11:00 Dose: 100 mls/hr Levothyroxine Sodium (Synthroid) 75 mcg PO DAILY@0630 [facility] Last Admin: 08/14/16 05:54 Dose: 75 mcg Morphine Sulfate (Morphine) 2 mg IVP Q6 PRN PRN Reason: Pain, moderate (4-7) Last Admin: 08/11/16 05:34 Dose: 2 mg Ondansetron HCl (Zofran Inj) 4 mg IVP Q4H PRN PRN Reason: Nausea/Vomiting Last Admin: 08/13/16 01:06 Dose: 4 mg Pantoprazole Sodium (Protonix Ec Tab) 40 mg PO DAILY [facility] Last Admin: 08/14/16 10:43 Dose: 40 mg Simethicone (Mylicon Chew Tab) 80 mg PO DAILY [facility] Last Admin: 04/11/17 10:43 Dose: 80 mg - Labs Labs: 08/14/16 06:47 08/14/16 06:47 - Constitutional Appears: Non-toxic, No Acute Distress - Head Exam Head Exam: NORMOCEPHALIC - Eye Exam Eye Exam: Normal appearance - ENT Exam ENT Exam: Mucous Membranes Moist - Respiratory Exam Respiratory Exam: NORMAL BREATHING PATTERN - Cardiovascular Exam Cardiovascular Exam: +S1, +S2 - GI/Abdominal Exam GI & Abdominal Exam: Soft, Tenderness. absent: Distended, Firm, Guarding - Neurological Exam Neurological Exam: Alert, Awake, Oriented x3 - Psychiatric Exam Psychiatric exam: Normal Mood - Skin Skin Exam: Dry, Intact, Warm Assessment and Plan - Assessment and Plan (Free Text) Assessment: 41 y/o F w/ abd pain 2/2 mesenteric adenitis - Clear for discharge from surgical standpoint - cont Abx -Regular Diet - recommend follow up with GI outpatient -PHAM Chairez
--- NOTE | 2016-08-14 18:57 | US ---
PROCEDURE: Ultrasound of the Kidneys HISTORY: UTI COMPARISON: CT abdomen and pelvis with contrast performed 08/10/16 TECHNIQUE: Sonogram of the kidneys. FINDINGS: RIGHT KIDNEY: Measures: 11.7 x 6.0 x 4.3 cm. No obstructing calculus, renal cyst, or hydronephrosis visualized. LEFT KIDNEY: Measures: 9.8 x 6.2 x 5.1 cm. No obstructing calculus, renal cyst, or hydronephrosis visualized. OTHER FINDINGS: Under distention of the urinary bladder limits evaluation. IMPRESSION: Unremarkable renal sonogram as above.
[2016-08-15 00:23] VITALS: TEMP 97.7
[2016-08-15] MEDS: metroNIDAZOLE IV 500 mg/100 ml 100 ML IVPB SCH (05:30)
[2016-08-15] MEDS: Levothyroxine 75 MCG TAB PO SCH (05:49)
[2016-08-15 07:22] LABS: BASO # 0.1 K/uL (0.0-0.2); BASO % 1.3 % (0.0-2.0); EOS # 0.4 K/uL (0.0-0.7); EOS % 4.6 % (0.0-4.0); LYMPH # 2.8 K/uL (1.0-4.3); LYMPH % 29.9 % (20.0-40.0); MEAN CELL VOLUME 82.3 fL (81.0-99.0); MEAN CORPUSCULAR HEMOGLOBIN 27.4 pg (27.0-31.0); MEAN CORPUSCULAR HGB CONC 33.3 g/dL (33.0-37.0); MEAN PLATELET VOLUME 8.1 fL (7.2-11.7); MONO # 0.7 K/uL (0.0-0.8); MONO % 7.7 % (0.0-10.0); RED CELL DISTRIBUTION WIDTH 13.2 % (11.5-14.5); WHITE BLOOD COUNT 9.5 K/uL (4.8-10.8)
[2016-08-15 07:56] LABS: CHLORIDE 100 mmol/L (98-107)
[2016-08-15 07:57] LABS: POTASSIUM 3.5 mmol/L (3.6-5.2); SODIUM 137 mmol/L (132-148)
[2016-08-15 07:59] VITALS: BP 151/89; PULSE 71
[2016-08-15 07:59] LABS: ALB/GLOB RATIO 1.1 (1.0-2.1); AST/SGOT 86 U/L (14-36); BILIRUBIN,TOTAL 0.2 mg/dL (0.2-1.3); BLOOD UREA NITROGEN 9 mg/dL (7-17); CARBON DIOXIDE 24 mmol/L (22-30); GFR AFRICAN-AMERICAN > 60; TOTAL PROTEIN 6.6 g/dL (6.3-8.3)
[2016-08-15 08:00] LABS: ALKALINE PHOSPHATASE 70 U/L (38-126); ALT/SGPT 45 U/L (9-52); CALCIUM 8.4 mg/dl (8.6-10.4); GLUCOSE,RANDOM 80 mg/dL (65-105)
[2016-08-15] MEDS: Simethicone 80 mg Chewtab PO SCH (09:27)
[2016-08-15] MEDS: Pantoprazole 40 mg EC Tab PO SCH (09:27)
[2016-08-15] MEDS: Enoxaparin 40 mg Syringe SC SCH (09:27)
[2016-08-15] MEDS ORDERED: Potassium Chloride 20 mEq ER Tab PO ONE (09:42)
--- NOTE | 2016-08-15 10:08 | CP.PCM.PN ---
Subjective - Date & Time of Evaluation Date of Evaluation: 08/15/16 Time of Evaluation: 07:30 Objective - Vital Signs/Intake and Output Vital Signs (last 24 hours): Temp Pulse Resp BP Pulse Ox 97.7 F 71 20 151/89 H 97 08/15/16 07:56 08/15/16 08:53 08/15/16 07:56 08/15/16 07:56 08/15/16 07:56 Intake and Output: 08/15/16 08/15/16 06:59 18:59 Intake Total 675 Balance 675 - Medications Medications: Current Medications Acetaminophen (Tylenol 325mg Tab) 650 mg PO Q6 PRN PRN Reason: Pain, severe (8-10) Enoxaparin Sodium (Lovenox) 40 mg SC DAILY [facility] Last Admin: 08/15/16 09:27 Dose: 40 mg Metronidazole (Flagyl) 100 mls @ 100 mls/hr IVPB Q8 [facility] Last Admin: 08/15/16 05:30 Dose: 100 mls/hr Ceftriaxone Sodium 1 gm/ (Sodium Chloride) 100 mls @ 100 mls/hr IVPB Q24H [facility] Last Admin: 08/14/16 11:00 Dose: 100 mls/hr Levothyroxine Sodium (Synthroid) 75 mcg PO DAILY@0630 [facility] Last Admin: 08/15/16 05:49 Dose: 75 mcg Ondansetron HCl (Zofran Inj) 4 mg IVP Q4H PRN PRN Reason: Nausea/Vomiting Last Admin: 08/13/16 01:06 Dose: 4 mg Pantoprazole Sodium (Protonix Ec Tab) 40 mg PO DAILY [facility] Last Admin: 08/15/16 09:27 Dose: 40 mg Simethicone (Mylicon Chew Tab) 80 mg PO DAILY [facility] Last Admin: 08/15/16 09:27 Dose: 80 mg - Labs Labs: 08/15/16 07:15 08/15/16 07:15
--- NOTE | 2016-08-15 10:52 | CP.PCM.DIS ---
<Royce Corral - Last Filed: 08/15/16 14:44> Provider - Provider Date of Admission: 08/10/16 14:39 Attending physician: Carlos Pink MD Primary care physician: NONE Consults: General surgery: Dr. Chairez Time Spent in preparation of Discharge (in minutes): 40 Diagnosis - Discharge Diagnosis (1) Abdominal pain Status: Acute Comment: see hospital course (2) Mesenteric adenitis Status: Acute Comment: see hospital course (3) UTI (urinary tract infection) Status: Acute Comment: see hospital course Hospital Course - Lab Results Lab Results: Micro Results 08/10/16 18:30 Blood-Venous Blood Culture - Preliminary NO GROWTH AFTER 4 DAYS 08/10/16 18:00 Blood-Venous Blood Culture - Preliminary NO GROWTH AFTER 4 DAYS Most Recent Lab Values WBC 9.5 K/uL (4.8-10.8) 08/15/16 07:15 RBC 4.49 Mil/uL (3.80-5.20) 08/15/16 07:15 Hgb 12.3 g/dL (11.0-16.0) 08/15/16 07:15 Hct 37.0 % (34.0-47.0) 08/15/16 07:15 MCV 82.3 fL (81.0-99.0) 08/15/16 07:15 MCH 27.4 pg (27.0-31.0) 08/15/16 07:15 MCHC 33.3 g/dL (33.0-37.0) 08/15/16 07:15 RDW 13.2 % (11.5-14.5) 08/15/16 07:15 Plt Count 391 K/uL (130-400) 08/15/16 07:15 MPV 8.1 fL (7.2-11.7) 08/15/16 07:15 Neut % (Auto) 56.5 % (50.0-75.0) 08/15/16 07:15 Lymph % (Auto) 29.9 % (20.0-40.0) 08/15/16 07:15 [place] % (Auto) 7.7 % (0.0-10.0) 08/15/16 07:15 Eos % (Auto) 4.6 % (0.0-4.0) H 08/15/16 07:15 Baso % (Auto) 1.3 % (0.0-2.0) 08/15/16 07:15 Neut # 5.3 K/uL (1.8-7.0) 08/15/16 07:15 Lymph # 2.8 K/uL (1.0-4.3) 08/15/16 07:15 [place] # 0.7 K/uL (0.0-0.8) 08/15/16 07:15 Eos # 0.4 K/uL (0.0-0.7) 08/15/16 07:15 Baso # 0.1 K/uL (0.0-0.2) 08/15/16 07:15 Neutrophils % (Manual) 82 % (50-75) H 08/10/16 09:06 Band Neutrophils % 3 % (0-2) H 08/10/16 09:06 Lymphocytes % (Manual) 9 % (20-40) L 08/10/16 09:06 Monocytes % (Manual) 6 % (0-10) 08/10/16 09:06 Platelet Estimate Normal (NORMAL) 08/10/16 09:06 RBC Morphology Normal 08/10/16 09:06 Sodium 137 mmol/L (132-148) 08/15/16 07:15 Potassium 3.5 mmol/L (3.6-5.2) L 08/15/16 07:15 Chloride 100 mmol/L (98-107) 08/15/16 07:15 Carbon Dioxide 24 mmol/L (22-30) 08/15/16 07:15 Anion Gap 16 (10-20) 08/15/16 07:15 BUN 9 mg/dL (7-17) 08/15/16 07:15 Creatinine 0.7 MG/DL (0.7-1.2) 08/15/16 07:15 Est GFR ( Amer) > 60 08/15/16 07:15 Est GFR (Non-Af Amer) > 60 08/15/16 07:15 Random Glucose 80 mg/dL (65-105) 08/15/16 07:15 Hemoglobin A1c 5.9 % (4.2-6.5) 08/11/16 07:18 Lactic Acid 0.7 mmol/L (0.7-2.1) 08/11/16 14:30 Calcium 8.4 mg/dl (8.6-10.4) L 08/15/16 07:15 Phosphorus 3.1 mg/dL (2.5-4.5) 08/14/16 06:47 Magnesium 2.2 mg/dL (1.6-2.3) 08/14/16 06:47 Total Bilirubin 0.2 mg/dL (0.2-1.3) 08/15/16 07:15 AST 86 U/L (14-36) H D 08/15/16 07:15 ALT 45 U/L (9-52) 08/15/16 07:15 Alkaline Phosphatase 70 U/L (38-126) 08/15/16 07:15 Total Protein 6.6 g/dL (6.3-8.3) 08/15/16 07:15 Albumin 3.5 g/dL (3.5-5.0) 08/15/16 07:15 Globulin 3.1 gm/dL (2.2-3.9) 08/15/16 07:15 Albumin/Globulin Ratio 1.1 (1.0-2.1) 08/15/16 07:15 Lipase 42 U/L (23-300) 08/10/16 09:06 Free T4 1.08 ng/dL (0.78-2.19) 08/11/16 07:18 TSH 3rd Generation 4.96 mIU/L (0.46-4.68) H 08/11/16 07:18 Beta HCG, Quant < 2.39 mIU/ML 08/10/16 09:06 Urine Color Yellow (YELLOW) 08/10/16 09:41 Urine Clarity Hazy (Clear) 08/10/16 09:41 Urine pH 7.0 (5.0-8.0) 08/10/16 09:41 Ur Specific Amoret 1.014 (1.003-1.030) 08/10/16 09:41 Urine Protein 1+ mg/dL (NEGATIVE) H 08/10/16 09:41 Urine Glucose (UA) Normal mg/dL (Normal) 08/10/16 09:41 Urine Ketones 1+ mg/dL (NEGATIVE) H 08/10/16 09:41 Urine Blood 2+ (NEGATIVE) H 08/10/16 09:41 Urine Nitrate Positive (NEGATIVE) H 08/10/16 09:41 Urine Bilirubin Negative (NEGATIVE) 08/10/16 09:41 Urine Urobilinogen Normal mg/dL (0.2-1.0) 08/10/16 09:41 Ur Leukocyte Esterase 2+ [place]/uL (Negative) H 08/10/16 09:41 Urine WBC (Auto) 51 /hpf (0-5) H 08/10/16 09:41 Urine RBC (Auto) 9 /hpf (0-3) H 08/10/16 09:41 Ur Squamous Epith Cells 11 /hpf (0-5) H 08/10/16 09:41 Urine Bacteria Occ (<OCC) H 08/10/16 09:41 Urine HCG, Qual Negative (NEGATIVE) 08/14/16 17:26 - Hospital Course Hospital Course: 41 year female with a past medical history of an ectopic , hypothyroidism, and miscarriage. She is here complaining of diffuse lower abdominal pain, sharp non radiating pain which is worsening from when it started. She says the pain started yesterday. She says the pain is made worse with body movement and also deep inspiration. She reports a loss of appetite, subjective fever and chills. She currently denies changes in vision, hearing, cough, admits to some shortness of breath today while in the bathroom. She complains of chronic constipation with her last bowel movement being yesterday and it was normal. She also reports having irregular, painful and heavy menstrual cycle as well. Her last LMP was Saturday of this week. She also reports some bilateral lower leg pain that she thinks is associated with her last menstrual cycle. She denies nausea, vomiting, diarrhea, joint pain, but admits occasional ankle swelling. Patient has taken no medication for the pain. [place] from [place]. Patient admitted for mesenteric adenitis and UTI. CT abd/pelvis was completed and revealed findings consistent with mesenteric adenitis, left ovarian cyst 3.1 x 2.4 cm, no significant abnormality (see full report). General surgery, Dr. Chairez, was consulted. Patient was started on IV antibiotics. UA revealed positive nitrites and 2+ leukocyte esterase. Urine culture grew E.coli. Patient was also placed on IV fluids. No need for surgical intervention at this time. Patient continued on IV Antibiotics, IV fluids, and pain control for 5 days. Her symptoms improved. A Renal ultrasound was performed and was unremarkable. On 08/15, patient was deemed medically stable for discharge to home by Dr. sawant. Patient was discharged on Cipro and flagyl for 5 days. Appointment was made with [facility] on september to establish care. Patient also instructed to follow up with GI. This is a summary of the hospital course. Please refer to EMR for more specific details. Discharge Exam - Head Exam Head Exam: ATRAUMATIC, NORMOCEPHALIC - Eye Exam Eye Exam: EOMI, Normal appearance Pupil Exam: PERRL - ENT Exam ENT Exam: Mucous Membranes Moist - Neck Exam Neck exam: Normal Inspection - Respiratory Exam Respiratory Exam: Clear to PA & Lateral, NORMAL BREATHING PATTERN - Cardiovascular Exam Cardiovascular Exam: RRR, +S1, +S2 - GI/Abdominal Exam GI & Abdominal Exam: Normal Bowel Sounds, Soft, Tenderness (minimal in lower abdomen to deep palpation) - Extremities Exam Extremities exam: normal capillary refill, pedal pulses present - Back Exam Back exam: absent: CVA tenderness (L), CVA tenderness (R) - Neurological Exam Neurological exam: Alert, CN II-XII Intact, Normal Gait, Oriented x3, Reflexes Normal - Psychiatric Exam Psychiatric exam: Normal Affect, Normal Mood - Skin Skin Exam: Dry, Intact, Normal Color, Warm Discharge Plan - Discharge Medications Prescriptions: Lactobacillus Acidophilus [Bacid Acidophilus] 1 cap PO BID #14 cap Ciprofloxacin [Cipro] 500 mg PO BID #14 tab Metronidazole [Flagyl] 500 mg PO Q8 #21 tablet Acetaminophen [Tylenol 325mg tab] 650 mg PO Q6 PRN #30 tab PRN Reason: Pain, Severe (8-10) - Follow Up Plan Condition: GOOD Disposition: HOME/ ROUTINE Instructions: Ciprofloxacin (By mouth), Metronidazole (By mouth), Probiotic ( By mouth), Urinary Tract Infection in Women (DC), Abdominal Pain (ED), Mesenteric Adenitis (DC) Additional Instructions: Patient medically stable for discharge to home by Dr. Sawant. Patient to take new medications Ciprofloxacin 500 mg by mouth twice per day, Bacid 1 capsule by mouth twice per day, Tylenol 650 mg by mouth every 6 hours as needed and Flagyl 500 mg by mouth every 8 hours. Patient is to establish acre and follow up with [facility], GI (Dr. Bar) and Surgery (Dr. Chairez) within 1 week of discharge. Patient may resume physical activity as tolerated. Please return to ER if symptoms persist or condition worsens. All instructions stated above were discussed in detail with patient. He verbalized understanding and agreement. Referrals: Alex Chairez MD [Staff Provider] - Kingston Bar MD [Staff Provider] - Vanessa Salazar MD [Staff Provider] - <Ej Sawant - Last Filed: 08/15/16 16:56> Provider - Provider Date of Admission: 08/10/16 14:39 Attending physician: Carlos Pink MD Hospital Course - Lab Results Lab Results: Micro Results 08/10/16 18:30 Blood-Venous Blood Culture - Preliminary NO GROWTH AFTER 4 DAYS 08/10/16 18:00 Blood-Venous Blood Culture - Preliminary NO GROWTH AFTER 4 DAYS Most Recent Lab Values WBC 9.5 K/uL (4.8-10.8) 08/15/16 07:15 RBC 4.49 Mil/uL (3.80-5.20) 08/15/16 07:15 Hgb 12.3 g/dL (11.0-16.0) 08/15/16 07:15 Hct 37.0 % (34.0-47.0) 08/15/16 07:15 MCV 82.3 fL (81.0-99.0) 08/15/16 07:15 MCH 27.4 pg (27.0-31.0) 08/15/16 07:15 MCHC 33.3 g/dL (33.0-37.0) 08/15/16 07:15 RDW 13.2 % (11.5-14.5) 08/15/16 07:15 Plt Count 391 K/uL (130-400) 08/15/16 07:15 MPV 8.1 fL (7.2-11.7) 08/15/16 07:15 Neut % (Auto) 56.5 % (50.0-75.0) 08/15/16 07:15 Lymph % (Auto) 29.9 % (20.0-40.0) 08/15/16 07:15 [place] % (Auto) 7.7 % (0.0-10.0) 08/15/16 07:15 Eos % (Auto) 4.6 % (0.0-4.0) H 08/15/16 07:15 Baso % (Auto) 1.3 % (0.0-2.0) 08/15/16 07:15 Neut # 5.3 K/uL (1.8-7.0) 08/15/16 07:15 Lymph # 2.8 K/uL (1.0-4.3) 08/15/16 07:15 [place] # 0.7 K/uL (0.0-0.8) 08/15/16 07:15 Eos # 0.4 K/uL (0.0-0.7) 08/15/16 07:15 Baso # 0.1 K/uL (0.0-0.2) 08/15/16 07:15 Neutrophils % (Manual) 82 % (50-75) H 08/10/16 09:06 Band Neutrophils % 3 % (0-2) H 08/10/16 09:06 Lymphocytes % (Manual) 9 % (20-40) L 08/10/16 09:06 Monocytes % (Manual) 6 % (0-10) 08/10/16 09:06 Platelet Estimate Normal (NORMAL) 08/10/16 09:06 RBC Morphology Normal 08/10/16 09:06 Sodium 137 mmol/L (132-148) 08/15/16 07:15 Potassium 3.5 mmol/L (3.6-5.2) L 08/15/16 07:15 Chloride 100 mmol/L (98-107) 08/15/16 07:15 Carbon Dioxide 24 mmol/L (22-30) 08/15/16 07:15 Anion Gap 16 (10-20) 08/15/16 07:15 BUN 9 mg/dL (7-17) 08/15/16 07:15 Creatinine 0.7 MG/DL (0.7-1.2) 08/15/16 07:15 Est GFR ( Amer) > 60 08/15/16 07:15 Est GFR (Non-Af Amer) > 60 08/15/16 07:15 Random Glucose 80 mg/dL (65-105) 08/15/16 07:15 Hemoglobin A1c 5.9 % (4.2-6.5) 08/11/16 07:18 Lactic Acid 0.7 mmol/L (0.7-2.1) 08/11/16 14:30 Calcium 8.4 mg/dl (8.6-10.4) L 08/15/16 07:15 Phosphorus 3.1 mg/dL (2.5-4.5) 08/14/16 06:47 Magnesium 2.2 mg/dL (1.6-2.3) 08/14/16 06:47 Total Bilirubin 0.2 mg/dL (0.2-1.3) 08/15/16 07:15 AST 86 U/L (14-36) H D 08/15/16 07:15 ALT 45 U/L (9-52) 08/15/16 07:15 Alkaline Phosphatase 70 U/L (38-126) 08/15/16 07:15 Total Protein 6.6 g/dL (6.3-8.3) 08/15/16 07:15 Albumin 3.5 g/dL (3.5-5.0) 08/15/16 07:15 Globulin 3.1 gm/dL (2.2-3.9) 08/15/16 07:15 Albumin/Globulin Ratio 1.1 (1.0-2.1) 08/15/16 07:15 Lipase 42 U/L (23-300) 08/10/16 09:06 Free T4 1.08 ng/dL (0.78-2.19) 08/11/16 07:18 TSH 3rd Generation 4.96 mIU/L (0.46-4.68) H 08/11/16 07:18 Beta HCG, Quant < 2.39 mIU/ML 08/10/16 09:06 Urine Color Yellow (YELLOW) 08/10/16 09:41 Urine Clarity Hazy (Clear) 08/10/16 09:41 Urine pH 7.0 (5.0-8.0) 08/10/16 09:41 Ur Specific [place] 1.014 (1.003-1.030) 08/10/16 09:41 Urine Protein 1+ mg/dL (NEGATIVE) H 08/10/16 09:41 Urine Glucose (UA) Normal mg/dL (Normal) 08/10/16 09:41 Urine Ketones 1+ mg/dL (NEGATIVE) H 08/10/16 09:41 Urine Blood 2+ (NEGATIVE) H 08/10/16 09:41 Urine Nitrate Positive (NEGATIVE) H 08/10/16 09:41 Urine Bilirubin Negative (NEGATIVE) 08/10/16 09:41 Urine Urobilinogen Normal mg/dL (0.2-1.0) 04 09:41 Ur Leukocyte Esterase 2+ [place]/uL (Negative) H 08/10/16 09:41 Urine WBC (Auto) 51 /hpf (0-5) H 08/10/16 09:41 Urine RBC (Auto) 9 /hpf (0-3) H 08/10/16 09:41 Ur Squamous Epith Cells 11 /hpf (0-5) H 08/10/16 09:41 Urine Bacteria Occ (<OCC) H 08/10/16 09:41 Urine HCG, Qual Negative (NEGATIVE) 08/14/16 17:26 Attending/Attestation - Attestation I have personally seen and examined this patient.: Yes I have fully participated in the care of the patient.: Yes I have reviewed all pertinent clinical information, including history, physical exam and plan: Yes Notes (Text): 08/15/16 16:54 Patient was seen and examined at bedside with the resident today Patient states abdominal pain is improving She is tolerating her diet Patient is clear for discharge by surgery We will start the patient on oral antibiotics for 7 days. Patient will follow- up with the PMD and GI as outpatient. Discussed the discharge plan with the patient and she verbalized understanding I agree with the above discharge note by the resident
[2016-08-17 03:21] VITALS: O2SAT 98
== END 2016-08-15 14:20 | disposition home or self-care (01) | DRG 188 ==
LOC: C.ER 08:31 → C.9E 14:39 → C.3T 18:54
PROVIDERS: ADMIT Internal Medicine; ATTEND Internal Medicine
DX: I88.0 Nonspecific mesenteric lymphadenitis (principal); N39.0 Urinary tract infection, site not specified; B96.20 Unspecified Escherichia coli [E. coli] as the cause of diseases classified elsewhere; E03.9 Hypothyroidism, unspecified; N83.202 Unspecified ovarian cyst, left side; D72.825 Bandemia

== ENCOUNTER 2017-01-20 03:05 | Emergency (ER) | payer SELFPAY ==
[2017-01-20] MEDS ORDERED: Sodium Chloride 0.9% 1,000 ML IV ONE (03:40)
[2017-01-20 04:17] LABS: BASO # 0.2 K/uL (0.0-0.2); BASO % 1.1 % (0.0-2.0); EOS # 0.3 K/uL (0.0-0.7); EOS % 1.8 % (0.0-4.0); HEMATOCRIT 35.1 % (34.0-47.0); LYMPH # 1.9 K/uL (1.0-4.3); MEAN CELL VOLUME 83.9 fL (81.0-99.0); MEAN CORPUSCULAR HEMOGLOBIN 28.4 pg (27.0-31.0); MEAN CORPUSCULAR HGB CONC 33.9 g/dL (33.0-37.0); MEAN PLATELET VOLUME 8.2 fL (7.2-11.7); MONO # 0.8 K/uL (0.0-0.8); MONO % 5.4 % (0.0-10.0); RED CELL DISTRIBUTION WIDTH 12.8 % (11.5-14.5); WHITE BLOOD COUNT 14.5 K/uL (4.8-10.8)
[2017-01-20 04:30] LABS: ALB/GLOB RATIO 1.2 (1.0-2.1); ALKALINE PHOSPHATASE 59 U/L (38-126); ALT/SGPT 24 U/L (9-52); AST/SGOT 19 U/L (14-36); BILIRUBIN,TOTAL 0.4 mg/dL (0.2-1.3); BLOOD UREA NITROGEN 15 mg/dL (7-17); CALCIUM 9.4 mg/dl (8.6-10.4); CARBON DIOXIDE 22 mmol/L (22-30); CHLORIDE 103 mmol/L (98-107); GFR AFRICAN-AMERICAN > 60; GLUCOSE,RANDOM 102 mg/dL (65-105); POTASSIUM 3.7 mmol/L (3.6-5.2); SODIUM 139 mmol/L (132-148)
[2017-01-20 05:44] LABS: RBC URINE 5 /hpf (0-3); URINE BILIRUBIN NEGATIVE (NEGATIVE); URINE BLOOD 2+ (NEGATIVE); URINE COLOR Yellow (YELLOW); URINE GLUCOSE (UA) NORMAL (Normal); URINE KETONE NEGATIVE (NEGATIVE); URINE LEUKOCYTE ESTERASE TRACE Leu/uL (Negative); URINE PROTEIN NEGATIVE (NEGATIVE); WBC URINE 2 /hpf (0-5)
[2017-01-20] MEDS ORDERED: Iodixanol 320 mg/ml 150 ml Bottle IV ONE (06:35)
--- NOTE | 2017-01-20 06:39 | C.PDOC ---
Time Seen by Provider: 01/20/17 03:27 Chief Complaint (Nursing): Abdominal Pain History Per: Patient, Family Onset/Duration Of Symptoms: Hrs (tonight) Current Symptoms Are (Timing): Still Present Severity: Moderate Location Of Pain/Discomfort: RLQ, LLQ, Suprapubic Quality Of Discomfort: "Pain" Associated Symptoms: Nausea Alleviating Factors: None Additional History Per: Prior Records Abnormal Vaginal Bleeding: No Past Medical History Reviewed: Historical Data, Nursing Documentation, Vital Signs Vital Signs: Last Vital Signs Temp 98.0 F 01/20/17 03:15 Pulse 94 H 01/20/17 03:15 Resp 16 01/20/17 03:15 BP 128/81 01/20/17 03:15 Pulse Ox 100 01/20/17 06:39 - Medical History PMH: HTN, Hypothyroidism Family History: States: Unknown Family Hx - Social History Hx Tobacco Use: No Hx Alcohol Use: No Hx Substance Use: No - Immunization History Hx Tetanus Toxoid Vaccination: No Hx Influenza Vaccination: No Hx Pneumococcal Vaccination: No Review Of Systems Except As Marked, All Systems Reviewed And Found Negative. Constitutional: Negative for: Fever Cardiovascular: Negative for: Chest Pain Respiratory: Negative for: Shortness of Breath Gastrointestinal: Positive for: Nausea, Abdominal Pain. Negative for: Vomiting , Diarrhea Genitourinary: Negative for: Dysuria Musculoskeletal: Negative for: Neck Pain Skin: Negative for: Rash Neurological: Negative for: Weakness, Numbness Physical Exam - Physical Exam Appears: Other (Uncomfortable) Skin: Normal Color, Warm, Dry Head: Atraumatic, Normacephalic Eye(s): bilateral: Normal Inspection, PERRL, EOMI Neck: Normal ROM, Supple Cardiovascular: Rhythm Regular Respiratory: Normal Breath Sounds, No Accessory Muscle Use Gastrointestinal/Abdominal: Soft, Tenderness (lower abdomen) Back: No CVA Tenderness Extremity: Normal ROM Neurological/Psych: Oriented x3, Normal Motor, Normal Sensation ED Course And Treatment - Laboratory Results Result Diagrams: 01/20/17 04:14 01/20/17 04:14 Lab Interpretation: Abnormal Interpretation Of Abnormal: Leukocytosis Urine POC: Negative O2 Sat by Pulse Oximetry: 100 Pulse Ox Interpretation: Normal Disposition - Disposition Disposition Time: 07:00 Condition: FAIR - Clinical Impression Clinical Impression: Abdominal pain Physician Patient Turnover Patient Signed Over To: Erica Vicente Handoff Comments: to f/up CT abd/pelv.
[2017-01-20 08:44] VITALS: BP 126/81; PULSE 95; RESP 18; TEMP 98; O2SAT 98
--- NOTE | 2017-01-20 09:42 | CT ---
PROCEDURE: CT Abdomen and Pelvis with contrast HISTORY: Lower abd pain. r/o appendicitis COMPARISON: Comparison is made to 08/10/2016 TECHNIQUE: Contrast dose: 100 mL of Visipaque 320. Axial and reformatted coronal and sagittal CT images of the abdomen and pelvis were obtained after IV contrast administration. Radiation dose: Total exam DLP = 719.74 mGy-cm. This CT exam was performed using one or more of the following dose reduction techniques: Automated exposure control, adjustment of the mA and/or kV according to patient size, and/or use of iterative reconstruction technique. FINDINGS: LOWER THORAX: Unremarkable. LIVER: Mildly enlarged slightly heterogeneous liver without evidence of discrete mass. The portal vein is patent. GALLBLADDER AND BILE DUCTS: Unremarkable. PANCREAS: Unremarkable. No gross lesion or ductal dilatation. SPLEEN: Unremarkable. ADRENALS: Unremarkable. No mass. KIDNEYS AND URETERS: Unremarkable. No hydronephrosis. No solid mass. VASCULATURE: Unremarkable. No aortic aneurysm. BOWEL: Unremarkable. No obstruction. No gross mural thickening. Mild constipation is noted. APPENDIX: No evidence of appendicitis. PERITONEUM: Unremarkable. No free fluid. No free air. LYMPH NODES: Unremarkable. No enlarged lymph nodes. BLADDER: Unremarkable. REPRODUCTIVE: Enlarged right adnexa surrounding with fluid. Findings could be due to recent rupture of a cyst. BONES: No acute fracture. OTHER FINDINGS: None. IMPRESSION: No evidence of appendicitis. Mildly enlarged right adnexa surrounding with fluid. Findings could be due to recent rupture of right adnexal cyst. Otherwise no evidence of acute pathology in the abdomen and pelvis. Preliminary report was submitted by [facility].
== END 2017-01-20 08:44 | disposition home or self-care (01) ==
LOC: C.ER 03:05
DX: R10.30 Lower abdominal pain, unspecified (principal)
CPT/HCPCS: 74177; 80053; 81001; 84703; 85025; 96374; 99285; J1885; J7040; Q9967

== ENCOUNTER 2017-03-19 23:19 | Emergency (ER) | payer OTHER ==
[2017-03-20] MEDS ORDERED: Sodium Chloride 0.9% 1,000 ML IV ONE (00:25)
[2017-03-20] MEDS ORDERED: DiphenhydrAMINE 50 mg/ml Inj IVP STA (00:26)
--- NOTE | 2017-03-20 00:27 | C.PDOC ---
History Of Present Illness 41 year old female with Hx of HTN and uterine cancer presents to the ED c/o headache associated with nausea that started today after she was done with her chemotherapy, the pain was gradual mainly located in the front of her head. Patient had a Hx of migraines before but is not taking any medication for it right now, she was given medication for the nausea she felt at the place where she has her chemotherapy done. Patient is also requesting a refill on her HTN medication until she is able to follow with her PMD for a visit and a proper refill. She denies neck stiffness, rashes, abdominal pain, incontinence, LOC. Time Seen by Provider: 03/20/17 00:24 Chief Complaint (Nursing): Headache History Per: Patient History/Exam Limitations: no limitations Onset/Duration Of Symptoms: Hrs Current Symptoms Are (Timing): Still Present Severity: Mild Quality: "Pain" Preceeding Symptoms: denies: Visual Disturbances Associated Symptoms: Nausea. denies: Photophobia, Blurred Vision, Vomiting, Extremity Weakness Recent travel outside of the [place]: No Additional History Per: Patient Past Medical History Reviewed: Historical Data, Nursing Documentation, Vital Signs Vital Signs: Last Vital Signs Temp 97.8 F 03/20/17 01:42 Pulse 94 H 03/20/17 01:42 Resp 16 03/20/17 01:42 BP 149/72 03/20/17 01:42 Pulse Ox 100 03/20/17 02:43 - Medical History PMH: HTN, Hypothyroidism Denies: Chronic Kidney Disease Surgical History: No Surg Hx Family History: States: Unknown Family Hx - Social History Hx Tobacco Use: No Hx Alcohol Use: No Hx Substance Use: No - Immunization History Hx Tetanus Toxoid Vaccination: No Hx Influenza Vaccination: No Hx Pneumococcal Vaccination: No Review Of Systems Constitutional: Negative for: Fever, Chills Cardiovascular: Negative for: Chest Pain, Palpitations Respiratory: Negative for: Cough, Shortness of Breath Gastrointestinal: Positive for: Nausea. Negative for: Vomiting, Abdominal Pain Musculoskeletal: Negative for: Neck Pain Neurological: Positive for: Headache. Negative for: Weakness, Numbness Physical Exam - Physical Exam Appears: Non-toxic, No Acute Distress Skin: Normal Color, Warm, Dry Head: Atraumatic, Normacephalic Oral Mucosa: Moist Neck: Normal ROM, Supple, No Other (Brudzinski test and Kernig test ) Chest: Symmetrical, No Tenderness Cardiovascular: Rhythm Regular, No Murmur Respiratory: Normal Breath Sounds, No Accessory Muscle Use, No Rales, No Rhonchi , No Wheezing Gastrointestinal/Abdominal: Soft, No Tenderness Extremity: Normal ROM, No Pedal Edema, No Calf Tenderness, No Swelling Neurological/Psych: Oriented x3, Normal Speech, Normal Cognition, Normal Motor, Normal Sensation Gait: Steady ED Course And Treatment O2 Sat by Pulse Oximetry: 100 (On RA) Pulse Ox Interpretation: Normal Medical Decision Making Medical Decision Making: Plan: * Benadryl 25 mg IVP given * Compazine 10 mg IVP given * IV fluids given * Toradol 30 mg IVP given * UA ordered On reevaluation patient states she feels al ot better with the medications, she was given prescription for her headache and a refill for the HTN medications until she is able to follow with her PMD. Disposition - Disposition Referrals: [facility] [Outside] Disposition: HOME/ ROUTINE Disposition Time: 05:13 Condition: IMPROVED Prescriptions: Acetaminophen/Butalbital/Caf [Fioricet] 1 tab PO TID PRN #15 tab PRN Reason: Pain, Severe (8-10) Lisinopril/Hydrochlorothiazide [Lisinopril-Hctz 10-12.5 mg Tab] 1 each PO DAILY #10 tablet Instructions: Tension Headache (ED) Forms: [facility] (Sami) Print Language: BENGALI - Clinical Impression Clinical Impression: Headache - Scribe Statement The provider has reviewed the documentation as recorded by the Scribe Israel Lo All medical record entries made by the Scribe were at my direction and personally dictated by me. I have reviewed the chart and agree that the record accurately reflects my personal performance of the history, physical exam, medical decision making, and the department course for this patient. I have also personally directed, reviewed, and agree with the discharge instructions and disposition.
[2017-03-20] MEDS ORDERED: Sodium Chloride 0.9% 1,000 ML ONE (00:39)
[2017-03-20] MEDS ORDERED: DiphenhydrAMINE 50 mg/ml Inj ONE (00:40)
[2017-03-20 01:43] VITALS: BP 149/72; PULSE 94; RESP 16; TEMP 97.8
[2017-03-20 02:36] VITALS: O2SAT 100
== END 2017-03-20 01:47 | disposition home or self-care (01) ==
LOC: C.ER 23:19
DX: R51 Headache (principal)
CPT/HCPCS: 96361; 96374; 96375; 99285; J0780; J1200; J1885; J7040

== ENCOUNTER 2017-08-05 14:40 | Emergency (ER) | payer OTHER ==
[2017-08-05 14:45] VITALS: TEMP 97.7; O2SAT 99
--- NOTE | 2017-08-05 15:14 | C.PDOC ---
History Of Present Illness Patient presents to ED c/o dysuria, sensivity/discomfort when urinating, and need to use a lot of pressure in order to get urine out. Symptoms began this morning. Patient has PMx of pelvic cancer (cervical vs endometrial? - patient unsure), diagnosed Jan 2017. Patient is s/p chemotherapy and pelvic radiation , currently pending follow up with quality assurance associate/onc and PET scan. She denies fever, nausea/vomiting/diarrhea, vaginal bleeding/discharge. Time Seen by Provider: 08/05/17 14:49 Chief Complaint (Nursing): Female Genitourinary History Per: Patient History/Exam Limitations: no limitations Onset/Duration Of Symptoms: Hrs Current Symptoms Are (Timing): Still Present Severity: Moderate Associated Symptoms: denies: Fever, Chills, Nausea, Vomiting, Diarrhea Abnormal Vaginal Bleeding: No Past Medical History Reviewed: Historical Data, Nursing Documentation, Vital Signs Vital Signs: Last Vital Signs Temp 97.7 F 08/05/17 14:42 Pulse 79 08/05/17 14:42 Resp 20 08/05/17 14:42 BP 117/73 08/05/17 14:42 Pulse Ox 99 08/05/17 15:16 - Medical History PMH: HTN, Hypothyroidism Other PMH: pelvic CA (cervical vs endometrial?) Other Surgeries: pelvic reconstruction surgery due to pelvic malignancy Family History: States: No Known Family Hx - Social History Hx Tobacco Use: No Hx Alcohol Use: No Hx Substance Use: No - Immunization History Hx Tetanus Toxoid Vaccination: No Hx Influenza Vaccination: No Hx Pneumococcal Vaccination: No Review Of Systems Except As Marked, All Systems Reviewed And Found Negative. Constitutional: Negative for: Fever, Chills Cardiovascular: Negative for: Chest Pain Respiratory: Negative for: Shortness of Breath Gastrointestinal: Negative for: Nausea, Vomiting, Abdominal Pain, Diarrhea Genitourinary: Positive for: Dysuria, Pelvic Pain, Other (difficulty getting urine out ) Skin: Negative for: Rash Physical Exam - Physical Exam Appears: Well, Non-toxic, No Acute Distress Oral Mucosa: Moist Cardiovascular: Rhythm Regular Respiratory: Normal Breath Sounds, No Rales, No Rhonchi, No Wheezing Gastrointestinal/Abdominal: Bowel Sounds, Soft, Tenderness (suprapubic mild TTP) , No Distention, No Guarding, No Rebound ED Course And Treatment O2 Sat by Pulse Oximetry: 99 (RA) Pulse Ox Interpretation: Normal Progress Note: UA, Ucx ordered. Patient given PO Ciprofloxacin and Pyridium. Spoke with office of her quality assurance associate/onc Dr. Nessa Malloy (critical care unit manager) scheduled patient for clinic appt on saturday at 1:[address] Martines. Results of urine faxed over to her at , Medical Decision Making Medical Decision Making: GIVEN PATIENT'S HISTORY OF PELVIC CA S/P CHEMO AND RADIATION, SYMPTOMS CONCERNING FOR POSSIBLE URETHRAL STRICTURE OR OTHER SEQUELAE OF RADIATION THERAPY. FOLLOW UP WITH HER YARD ASSOCIATE/ONC OBTAINED FOR THIS WEEK. CIPRO AND PYRIDIUM GIVEN, AND URINE CX PENDING . Disposition Counseled Patient/Family Regarding: Studies Performed, Diagnosis, Need For Followup, Rx Given - Disposition Referrals: Nessa Mcgregor MD [Medical Doctor] - Disposition: HOME/ ROUTINE Disposition Time: 16:05 Condition: STABLE Additional Instructions: YOU HAVE AN APPOINTMENT AT [facility] SATURDAY 1:45PM (08/07/17) AT [facility] USE MEDICATIONS DIRECTED RETURN TO EMERGENCY ROOM IF YOUR SYMPTOMS WORSEN TIENE YUDITH MACKENZIE EN EL DR. SALBADOR KENDALL 1:45 PM (08/07/17) EN EL [facility] USE MEDICAMENTOS SEGN LO INDICADO REGRESE A LA TAINA DE EMERGENCIA SI WENDI SNTOMAS FUNCIONAN Prescriptions: Ciprofloxacin [Cipro] 1 tab PO BID #14 tab Phenazopyridine [Pyridium] 100 mg PO TID #9 tab Instructions: Urinary Tract Infection, Adult (DC) Forms: [email or web address] (Libyan) Print Language: SINHALA - Clinical Impression Clinical Impression: UTI (urinary tract infection), Dysuria
[2017-08-05 15:22] LABS: HCG,QUALITATIVE URINE NEGATIVE (NEGATIVE)
[2017-08-05 15:33] LABS: SQUAMOUS EPITHIAL 7 /hpf (0-5); URINE BACTERIA OCC (<OCC); URINE BILIRUBIN NEGATIVE (NEGATIVE); URINE BLOOD 3+ (NEGATIVE); URINE CLARITY Hazy (Clear); URINE COLOR Yellow (YELLOW); URINE GLUCOSE (UA) NORMAL (Normal); URINE LEUKOCYTE ESTERASE 2+ Leu/uL (Negative); URINE PROTEIN 1+ mg/dL (NEGATIVE); URINE UROBILINOGEN NORMAL mg/dL (0.2-1.0)
[2017-08-05 16:15] VITALS: BP 110/70; PULSE 75; RESP 18
== END 2017-08-05 16:20 | disposition home or self-care (01) ==
LOC: C.ER 14:40
DX: N39.0 Urinary tract infection, site not specified (principal); R30.0 Dysuria